=== PATIENT | male | born 1990 | race Caucasian/White ===

== ENCOUNTER 2023-08-02 10:01 | Outpatient (OUT) | payer OTHER, SELFPAY ==
--- NOTE | 2023-08-02 10:46 | XR_ITS ---
The [place] [id number] Patient Name: SHARAD GUTIERREZ MRN: [id number] date: 1990 Sex: M Assigned Patient Location: [facility] Current Patient Location: Accession/Order Number: [id number] Exam Date: 08/02/2023 10:40 Report Date: 08/03/2023 11:43 At the request of: GUZMAN BERNAL Procedure: XR lumbar spine 2-3V EXAMINATION: XR lumbar spine 2-3V HISTORY: Low Back Pain , left radiculopathy COMPARISON: No relevant comparison available. FINDINGS: BONES: Slight right convex curvature lumbar spine. No fracture or spondylolisthesis. Minimal degenerative facet arthropathy. DISC SPACES: Slight narrowing L4-5. PARASPINOUS: Negative. No paraspinous abnormality is seen. OTHER: Negative. XR/XR lumbar spine 2-3V IMPRESSION: 1. L4-5 mild degenerative disc disease. Electronically authenticated by: VANESA COYLE Date: 08/03/2023 11:43
== END 2023-08-02 10:02 | disposition home or self-care (01) ==
LOC: RAD 10:01
PROVIDERS: PCP Nurse Practitioner Family; Visit Provider Nurse Practitioner Family
DX: M54.42 Lumbago with sciatica, left side (principal); M51.36 Other intervertebral disc degeneration, lumbar region
CPT/HCPCS: 72100

== ENCOUNTER 2023-08-11 00:47 | Emergency (ER) | payer OTHER, SELFPAY ==
[2023-08-11 01:00] VITALS: BP 140/90; PULSE 91; TEMP 36.7; O2SAT 97; BMI 44.3
--- NOTE | 2023-08-11 01:21 | ECG_ITS ---
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
[2023-08-11] MEDS: KETOROLAC TROMETHAMINE 30 MG/ML VIAL IVP (01:42)
[2023-08-11] MEDS: DIAZEPAM 5 MG TABLET PO (01:42)
[2023-08-11] MEDS: 0.9 % SODIUM CHLORIDE 1,000 ML 1000 ML IV (01:42)
[2023-08-11 01:46] LABS: Basophils Absolute Auto 0.1 10^3/uL (0.0-0.1); Basophils Percent Auto 0.8 % (0.2-2.0); Eosinophils Absolute Auto 0.3 10^3/uL (0.0-0.7); Eosinophils Percent Auto 3.3 % (0.9-7.0); Hematocrit 42.2 % (42.0-54.0); Hemoglobin 13.6 g/dL (14.0-18.0); Immature Granulocytes Abs Auto 0.03 10^3/uL (0.00-0.03); Immature Granulocytes Pct Auto 0.4 % (0.0-0.5); Lymphocytes Absolute Auto 3.2 10^3/uL (1.2-3.8); Lymphocytes Percent Auto 41.3 % (20.5-60.0); Mean Corpuscular HGB Conc 32.2 g/dL (29.9-35.2); Mean Corpuscular Hemoglobin 28.2 pg (25.9-34.0); Mean Corpuscular Volume 87.4 fL (80.0-94.0); Monocytes Absolute Auto 0.7 10^3/uL (0.3-0.8); Monocytes Percent Auto 8.3 % (1.7-12.0); Neutrophils Absolute Auto 3.6 10^3/uL (1.4-6.5); Neutrophils Percent Auto 45.9 % (43.0-75.0); Platelet Count 224 10^3/uL (150-450); Red Blood Count 4.83 10^6/uL (4.70-6.10); Red Cell Distribution Width 12.9 % (11.0-15.0); White Blood Count 7.8 10^3/uL (4.0-11.0)
[2023-08-11 02:01] LABS: Alanine Aminotransferase 43 U/L (16-63); Albumin Globulin Ratio 1.2; Albumin Level 4.1 g/dL (3.4-5.0); Alkaline Phosphatase 43 U/L (46-116); Anion Gap 13.4; Aspartate Amino Transferase 14 U/L (15-37); BUN Creatinine Ratio 8.9; Bilirubin Total 0.3 mg/dL (0.2-1.0); Calcium 8.9 mg/dL (8.5-10.1); Carbon Dioxide 29.8 mmol/L (21.0-32.0); Chloride 100 mmol/L (98-107); Estimated GFR (African America >60 (>=60); Estimated GFR (Non-African Ame >60 (>=60); Globulin 3.4 g/dL; Glucose 129 mg/dL (74-106); Potassium 3.2 mmol/L (3.5-5.1); Sodium 140 mmol/L (136-145); Total Protein 7.5 g/dL (6.4-8.2)
[2023-08-11 02:04] LABS: Troponin I High Sensitivity <4.0 pg/mL (4.0-76.1)
[2023-08-11 02:05] LABS: D Dimer 1.13 mg/L FEU (<=0.59)
--- NOTE | 2023-08-11 02:08 | CT_ITS ---
[address] [address] Patient Name: SHARAD GUTIERREZ MRN: [id number] date: 1990 Sex: M Assigned Patient Location: ER Current Patient Location: ER Accession/Order Number: [id number] Exam Date: 08/11/2023 02:37 Report Date: 08/11/2023 04:27 At the request of: AMBER MARKER Procedure: CT angio chest EXAM: CT angio chest HISTORY: Left chest pain, elevate d dimer. COMPARISON: None. TECHNIQUE: Routine CTA chest with intravenous contrast. Dose reduction techniques were achieved by using automated exposure control and/or adjustment of mA and/or kV according to patient size and/or use of iterative reconstruction technique. FINDINGS: Cardiovascular: There is contrast within both the left and right heart and the subsegmental branches of the pulmonary arteries are not well opacified. There is no pulmonary mass within the pulmonary trunk or within the main, lobar or segmental pulmonary arteries. The heart size is normal. There is no pericardial fluid or thickening. The thoracic and proximal abdominal aorta are unremarkable. Lung: There is no consolidation, pleural effusion or pulmonary vascular congestion. There are no suspicious masses or nodules within the lungs. Lymphadenopathy: There are no pathologically enlarged lymph nodes. Other: The trachea and esophagus are unremarkable. There is mild thyromegaly. The thyroid gland was not entirely included within the field of imaging. There is no pneumothorax. Upper abdomen: The liver appears fatty infiltrated. Musculoskeletal: Unremarkable. CT/CT angio chest IMPRESSION: There is contrast within both the left and right heart and the subsegmental branches of the pulmonary arteries are not well opacified. There is no pulmonary mass within the pulmonary trunk or within the main, lobar or segmental pulmonary arteries. There is no consolidation or pleural effusion. There is mild thyromegaly. The thyroid gland was not entirely included within the field of imaging. The liver appears fatty infiltrated. Electronically authenticated by: RAKAN GAMBOA Date: 08/11/2023 04:27
--- NOTE | 2023-08-11 02:56 | ED_ITS ---
HPI HPI - General Adult General Chief complaint: Neuro Symptoms/Deficit Stated complaint: DIZZINESS NUMBNESS L ARM Time Seen by Provider: 08/11/23 01:08 Source: patient Mode of arrival: walk-in Limitations: no limitations History of Present Illness HPI narrative: This 32-year-old male who does not smoke cigarettes but vapes presents for evaluation of left arm numbness from his shoulder to his hand. The patient states he was walking down the stairs yesterday and fell and struck the left bicep muscle on the railing of his stairs. He did not fall at that time. Tonight he started having some numbness and tingling in the arm and felt dizzy while sitting and lying down. He did not pass out. He denies any mulu chest pain. The numbness and tingling in his left arm has decreased. He denies any shortness of breath. He states for the past 3 weeks he has been having left low back pain/sciatica pain. He has been taking muscle relaxants intermittently but he has not had any relief from this pain. He points to an area at his lower thoracic region states that he is having pain in this area with deep inspiration. He has not had any cough or hemoptysis. He denies any abdominal pain. He has no lower extremity pain or swelling. He has not had any headache, slurred speech, confusion or other neurologic symptoms besides the numbness in his left arm. Related Data Home Medications ?Medication ?Instructions ?Recorded ?Confirmed phentermine 37.5 mg tablet 37.5 mg PO DAILY 08/11/23 08/11/23 (Adipex-P) Allergies Allergy/AdvReac Type Severity Reaction Status Date / Time No Known Drug Allergies Allergy Verified 08/11/23 01:06 Opioid HPI Opioid Management Most Recent Opioid Data: No Data to Display Review of Systems ROS Status of ROS 10 or more systems reviewed and unremark able except as noted in history and below Exam Narrative Exam Narrative: Vital signs and Nursing Notes reviewed: Patient is afebrile with a normal pulse, blood pressure is mildly elevated at 140/90, he is not hypoxic with pulse ox of 97% on room air General: Awake, alert, oriented, no acute distress, lying comfortably on the stretcher HEENT: Normocephalic atraumatic, mucous membranes are moist and pink, eyes are clear, normal conjunctiva, vision is grossly intact Chest: Lungs are clear to auscultation with good air entry, there is no wheezing rhonchi or rales appreciated no accessory muscle use, patient is speaking in complete sentences-no chest wall tenderness to palpation CVS: Regular rate and rhythm S1-S2, no murmurs rubs or gallops, pulses are brisk and equal bilaterally ABD: Soft, nondistended, nontender, no rebound guarding or rigidity, bowel sounds are normal, no pulsatile masses appreciated Extremities: Moving all extremities, patient has full range of motion of both upper extremities. 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 NIH stroke scale is 0, despite the subjective complaint of numbness in the left upper extremity the patient has normal sensation and full range of motion Constitutional Vital Signs, click to edit/add: Last Vital Signs Temp 98.1 F 08/11/23 01:00 Pulse 82 08/11/23 04:00 Resp 18 08/11/23 04:00 BP 140/90 08/11/23 01:00 Pulse Ox 97 08/11/23 04:00 O2 Del Method Room Air 08/11/23 01:00 Course Vital Signs Vital signs: Vital Signs Temperature 98.1 F 08/11/23 01:00 Pulse Rate 91 H 08/11/23 01:00 Respiratory Rate 16 08/11/23 01:00 Blood Pressure 140/90 08/11/23 01:00 Pulse Oximetry 97 08/11/23 01:00 Oxygen Delivery Method Room Air 08/11/23 01:00 Temperature 98.1 F 08/11/23 01:00 Pulse Rate 82 08/11/23 04:00 Respiratory Rate 18 08/11/23 04:00 Blood Pressure 140/90 08/11/23 01:00 Pulse Oximetry 97 08/11/23 04:00 Oxygen Delivery Method Room Air 08/11/23 01:00 Medical Decision Making [facility] Narrative Medical decision making narrative: This 32-year old male presents for evaluation of left arm numbness and 2 episodes of dizziness prior to coming to the emergency department. He denies any mulu chest pain or shortness of breath. He states he fell yesterday and struck the left medial bicep muscle on the railing when he was falling. He was not otherwise injured. He does not have any cardiac risk factors beside the fact that he vapes and is moderately overweight. His neuroexam is normal. His strength and sensation in the upper and lower extremities are normal. Sensation is normal. He has full range of motion of his extremities. He states he was also being treated for sciatica and has pain in the left lumbar region and when he takes a deep breath he has a sharp pain in his left mid to lower back area. In light of that a cardiac workup and D-dimer was ordered. He has a normal white count and hemoglobin. Electrolytes are normal. He has a normal troponin. D-dimer is elevated greater than 1. CTA of the chest was ordered and the bolus timing was not perfect but there is no sign of any abnormalities in the pulmonary arteries including the subsegmental arteries. There is no mass or other abnormal findings. It did show fatty liver. The results of the CT scan was discussed with the patient and his . On reevaluation he is feeling completely better. All of his symptoms including the muscle spasm and sciatica he was experiencing are feeling better. He will be discharged home with prescription for short course of Valium to use for muscle spasm and ibuprofen to use for pain. Medical Records Medical records narrative: [place] [address] CT Scan Report Signed Patient: SHARAD DARNELL MR#: [id number] : 1990 Acct:[id number] Age/Sex: 32 / M ADM Date: 08/11/23 Loc: ER Attending Dr: Ordering Physician: Roz Coy Date of Service: 08/11/23 Procedure(s): CT angio chest Accession Number(s): [id number] cc: GUZMAN BERNAL ~ The [place] [id number] Patient Name: SHARAD GUTIERREZ MRN: [facility]:[id number] date: 1990 Sex: M Assigned Patient Location: ER Current Patient Location: ER Accession/Order Number: [id number] Exam Date: 08/11/2023 02:37 Report Date: 08/11/2023 04:27 At the request of: ROZ COY Procedure: CT angio chest EXAM: CT angio chest HISTORY: Left chest pain, elevate d dimer. COMPARISON: None. TECHNIQUE: Routine CTA chest with intravenous contrast. Dose reduction techniques were achieved by using automated exposure control and/or adjustment of mA and/or kV according to patient size and/or use of iterative reconstruction technique. FINDINGS: Cardiovascular: There is contrast within both the left and right heart and the subsegmental branches of the pulmonary arteries are not well opacified. There is no pulmonary mass within the pulmonary trunk or within the main, lobar or segmental pulmonary arteries. The heart size is normal. There is no pericardial fluid or thickening. The thoracic and proximal abdominal aorta are unremarkable. Lung: There is no consolidation, pleural effusion or pulmonary vascular congestion. There are no suspicious masses or nodules within the lungs. Lymphadenopathy: There are no pathologically enlarged lymph nodes. Other: The trachea and esophagus are unremarkable. There is mild thyromegaly. The thyroid gland was not entirely included within the field of imaging. There is no pneumothorax. Upper abdomen: The liver appears fatty infiltrated. Musculoskeletal: Unremarkable. CT/CT angio chest IMPRESSION: There is contrast within both the left and right heart and the subsegmental branches of the pulmonary arteries are not well opacified. There is no pulmonary mass within the pulmonary trunk or within the main, lobar or segmental pulmonary arteries. There is no consolidation or pleural effusion. There is mild thyromegaly. The thyroid gland was not entirely included within the field of imaging. The liver appears fatty infiltrated. Electronically authenticated by: RAKAN GAMBOA Date: 08/11/2023 04:2 Lab Data Lab results reviewed: Yes I reviewed the patient's lab results Labs: Lab Results 08/11/23 Range/Units 01:35 WBC 7.8 (4.0-11.0) 10^3/uL RBC 4.83 (4.70-6.10) 10^6/uL Hgb 13.6 L (14.0-18.0) g/dL Hct 42.2 (42.0-54.0) % MCV 87.4 (80.0-94.0) fL MCH 28.2 (25.9-34.0) pg MCHC 32.2 (29.9-35.2) g/dL RDW 12.9 (11.0-15.0) % Plt Count 224 (150-450) 10^3/uL MPV 11.0 (9.5-13.5) fL Neut % (Auto) 45.9 (43.0-75.0) % Lymph % (Auto) 41.3 (20.5-60.0) % [place] % (Auto) 8.3 (1.7-12.0) % Eos % (Auto) 3.3 (0.9-7.0) % Baso % (Auto) 0.8 (0.2-2.0) % Neut # (Auto) 3.6 (1.4-6.5) 10^3/uL Lymph # (Auto) 3.2 (1.2-3.8) 10^3/uL [place] # (Auto) 0.7 (0.3-0.8) 10^3/uL Eos # (Auto) 0.3 (0.0-0.7) 10^3/uL Baso # (Auto) 0.1 (0.0-0.1) 10^3/uL Abs Immat Gran (auto) 0.03 (0.00-0.03) 10^3/uL Imm/Tot Granulo (auto) 0.4 (0.0-0.5) % D-Dimer 1.13 H* (<=0.59) mg/L FEU Sodium 140 (136-145) mmol/L Potassium 3.2 L (3.5-5.1) mmol/L Chloride 100 (98-107) mmol/L Carbon Dioxide 29.8 (21.0-32.0) mmol/L Anion Gap 13.4 BUN 9.0 (7.0-18.0) mg/dL Creatinine 1.01 (0.70-1.30) mg/dL Est GFR ( Amer) >60 (>=60) Est GFR (Non-Af Amer) >60 (>=60) BUN/Creatinine Ratio 8.9 Glucose 129 H (74-106) mg/dL Calcium 8.9 (8.5-10.1) mg/dL Total Bilirubin 0.3 (0.2-1.0) mg/dL AST 14 L (15-37) U/L ALT 43 (16-63) U/L Alkaline Phosphatase 43 L (46-116) U/L Troponin I High Sens <4.0 L (4.0-76.1) pg/mL Total Protein 7.5 (6.4-8.2) g/dL Albumin 4.1 (3.4-5.0) g/dL Globulin 3.4 g/dL Albumin/Globulin Ratio 1.2 ECG Data Attestation: I personally reviewed and interpreted this ECG as follows: (Sinus rhythm 85 bpm, normal axis, normal intervals, no acute ST segment elevation or T wave inversion) Discharge Plan Discharge Stand Alone Forms: [place] Instructions Chief Complaint: Neuro Symptoms/Deficit Clinical Impression: Musculoskeletal back pain, Upper extremity neuropathy Patient Disposition: Home, Self-Care Time of Disposition Decision: 04:44 Condition: Good Prescriptions / Home Meds: No Action phentermine [Adipex-P] 37.5 mg tablet 37.5 mg PO DAILY Rx Instructions: must administer 30 minutes before or 1-2 hours after breakfast Print Language: Beninese Instructions: Sciatica (ED), Acute Low Back Pain (ED), Paresthesia (ED) Referrals: GUZMAN BERNAL [Primary Care Provider] - 1 week
[2023-08-11 04:00] VITALS: PULSE 82; O2SAT 97
[2023-08-11 04:53] VITALS: BP 132/82; PULSE 76; O2SAT 99
== END 2023-08-11 04:53 | disposition home or self-care (01) ==
PROVIDERS: Emergency Provider Emergency Medicine; PCP Nurse Practitioner Family
DX: M54.9 Dorsalgia, unspecified (principal); G56.90 Unspecified mononeuropathy of unspecified upper limb; F17.290 Nicotine dependence, other tobacco product, uncomplicated
CPT/HCPCS: 36415; 71275; 80053; 84484; 85025; 85378; 93005; 96361; 96374; 99285; J1885; Q9967

== ENCOUNTER 2024-12-05 15:52 | Outpatient (OUT) | payer OTHER, SELFPAY ==
--- NOTE | 2024-12-05 | XR_ITS ---
The [address] [address] Patient Name: SHARAD GUTIERREZ MRN: [id number] date: 1990 Sex: M Assigned Patient Location: RAD Current Patient Location: [facility] Accession/Order Number: [id number] Exam Date: 12/05/2024 16:10 Report Date: 12/05/2024 22:22 At the request of: RUBY CUNNINGHAM CORRESPONDENCE SECTION SUPERVISOR Procedure: XR hip LT 2V w/ pelvis Single view pelvis and 2 views left hip INDICATION: Pain COMPARISON: None FINDINGS: Minimal spurring sacroiliac joint. No fracture or dislocation identified. Joint spaces preserved. XR/XR hip LT 2V w/ pelvis IMPRESSION: Negative acute osseous abnormalities. Impression dictated by: Adolfo Gerardo M.D. 12/05/2024 10:22 PM Dictation Location: [place] [address] Electronically authenticated by: [id number] Y Date: 12/05/2024 22:22
--- OUTSIDE RECORDS SUMMARY | 2024-12-05 15:00 | XMS_ITS | Encounter Summary ---
Author Organization [facility] [employer] s tem Address [id number] [address] [place] [address] Care Team Providers Care Court Of Appeals Judge Name Role Phone Olesya, Maggy Kenyon TASSEL SNIPPER-EXTRUSION PRESS OPERATOR Primary Care Provider + Reason for Visit * ReasonCommentsdiscuss referral Encounter Details DateTypeDepartmentCare Team (Latest Contact Info)Rhezjjzyhmb82/22/2025 3:00 PM EDTOffice Visit [facility] [address] [place] [address] Lewis Hull, TASSEL SNIPPER-EXTRUSION PRESS OPERATOR [address], [address] [address] Left hip pain (Primary Dx); Lumbar radiculopathy, chronic; Class 3 severe obesity due to excess calories without serious comorbidity with body mass index (BMI) of 45.0 to 49.9 in adult ([facility]) Social History Tobacco UseTypesPacks/DayYears UsedDateSmoking Tobacco: TfhuhvBzmkwnzjtc399 07/05/2012 - 07/05/2022Smokeless Tobacco: FormerChewQuit: 07/05/2022lcohol Use Standard Drinks/WeekCommentsNot Currently0 (1 standard drink = 0.6 oz pure alcohol)[facility] UtilitiesAnswerDate RecordedIn the past 12 months has the electric, gas, oil, or water company threatened to shut off services in your home?No 10/03/2023Social Connection and Isolation PanelAnswerDate RecordedIn a typical week, how many times do you talk on the phone with family, friends, or neighbors?More than three times a week10/03/2023How often do you get together with friends or relatives?Once a week10/03/2023How often do you attend sikh or zoroastrian services?Never10/03/2023o you belong to any clubs or organizations such as sikh groups, unions, fraternal or athletic groups, or school groups?No 10/03/2023How often do you attend meetings of the clubs or organizations you belong to?Never10/03/2023re you , , , , never , or living with a partner?Iwhdxyi2810/03/2023UDIT-CAnswerDate RecordedQ1: How often do you have a drink containing alcohol?Monthly or less10/03/2023Q2: How many drinks containing alcohol do you have on a typical day when you are drinking?1 or Q3: How often do you have six or more drinks on one occasion?Never10/03/2023Overall Financial Resource Strain (CARDIA)AnswerDate RecordedHow hard is it for you to pay for the very basics like food, housing, medical care, and heating?Not very hard12/02/2023HQ-2AnswerDate RecordedTotal Swjix171Finintermountain healthcare [place] of Occupational Health - Occupational Stress QuestionnaireAnswerDate RecordedDo you feel stress - tense, restless, nervous, or anxious, or unable to sleep at night because yourmind is troubled all the time - these days?To some glfsot9610/03/2023RAPARE - TransportationAnswerDate RecordedIn the past 12 months, has lack of transportation kept you from medical appointments or from getting medications?Patient /18/2024In the past 12 months, has lack of transportation kept you from meetings, work, or from getting things needed for daily living?Patient dqalglkq20/18/2024Housing InstabilityAnswerDate RecordedAre you worried or concerned that in the next two months you may not have stable housing that you own, rent or stay in as a part of a household?Patient Nuznlzoe89/18/2024hildcareAnswerDate RecordedDo problems getting child care provider make it difficult for you to work or study?No10/03/2023 EmploymentAnswerDate RecordedDo you need help finding a local career center and/or a training program?No10/03/2023Hunger ScreeningAnswerDate RecordedWithin the past 12 months we worried whether our food would run out before we got money to buy more.Never True12/05/2024Within the past 12 months the food we bought just didn't last and we didn't have money to get more.Never True12/05/2024 Purpose - LifeAnswerDate RecordedI have a purpose and direction in my life. Strongly Agree10/03/2023Sex and Gender InformationValueDate RecordedSex Assigned at BirthNot on fileLegal QxbOlwh7609/17/2014 7:25 PM EDTGender IdentityNot on file Sexual OrientationNot on filedocumented as of this encounter Last Filed Vital Signs Vital SignReadingTime TakenCommentsBlood Baeoozdy130/8812/05/2024 2:48 PM EDT Jemre388212/05/2024 2:48 PM NHXGkvleqaccjx43.4 ??C (97.6 ??F)12/05/2024 2:48 PM EDTRespiratory Gyeb9586 2:48 PM EDTOxygen Iglsggmvyj00%12/05/2024 2:48 PM EDTInhaled Oxygen Concentration--Ectkrb477.1 kg (333 lb 3.2 oz)12/05/2024 2:48 PM YMXKglvwx785.8 cm (5' 10 )12/05/2024 2:48 PM EDTBody Mass Index47.81 12/05/2024 2:48 PM EDTdocumented in this encounter Plan of Treatment NameTypePriorityAssociated DiagnosesOrder ScheduleX-ray hip left 2-3 views with or without pelvisImagingRoutine Left hip pain Expected: 12/05/2024, Expires: 12/05/2025documented as of this encounter Visit Diagnoses Diagnosis Left hip pain- Primary Pain in joint, pelvic region and thigh Lumbar radiculopathy, chronic Class 3 severe obesity due to excess calories without serious comorbidity with body mass index (BMI) of 45.0 to 49.9 in adult ([facility]) documented in this encounter Additional Health Concerns AssessmentNoted TimePHQ-9 Depression Total Score: 2:47 PM EDT documented as of this encounter Care Teams Team MemberRelationshipSpecialtyStart DateEnd Date Maggy Dacosta APRN-EXTRUSION PRESS OPERATOR [address] [place] [address] PCP - GeneralInternal Ajgirgnl96/16/23documented as of this encounter
--- OUTSIDE RECORDS SUMMARY | 2024-12-05 15:59 | XMS_ITS | Clinical Summary ---
Author Organization [facility] Address [address] [place] [address] Phone Care Team Providers Care Mineralogy Teacher Name Role Phone Unavailable Primary Care Provider Unavailabl e Social History Tobacco UseTypesPacks/DayYears UsedDateSmoking Tobacco: Never AssessedSex and Gender InformationValueDate RecordedSex Assigned at BirthNot on fileLegal Sex Male01/08/2022 11:38 AM ESTGender IdentityNot on fileSexual OrientationNot on file Last Filed Vital Signs Vital SignReadingTime TakenCommentsBlood Mgyzyguh531/80003/02/2017 7:26 AM EST Dgnua3451 7:26 AM VMQIrsvjjvwgmg83.5 ??C (97.7 ??F)03/02/2017 7:26 AM ESTRespiratory Gqpi2939 7:26 AM ESTOxygen Saturation--Inhaled Oxygen Concentration--Uluqwu937 kg (278 lb 7.1 oz)03/02/2017 7:17 AM KSPItuahf285.8 cm (5' 10 )03/02/2017 7:17 AM ESTBody Mass Index39.95003/02/2017 7:17 AM EST Plan of Treatment Not on file
--- OUTSIDE RECORDS SUMMARY | 2024-12-05 15:59 | XMS_ITS | Clinical Summary ---
Author Organization [employer] tem Address [id number] [address] [place] [address] Care Team Providers Care Instrument Technician Name Role Phone Olesya Maggy Kenyon APRN-BISQUE PLACER Primary Care Provider + Allergies No known active allergies Medications MedicationSigDispense QuantityRefillsLast FilledStart DateEnd DateStatus fluticasone propionate (FLONASE) 50 mcg/actuation nasal spray Administer 1 spray into each nostril in the morning. 9.9 mL 4Active Additional Information Patient not taking.Reported on 12/05/2024 tiZANidine (ZANAFLEX) 4 mg tablet Indications:Left hip pain,Lumbar radiculopathy, chronicTake 1 tablet (4 mg total) by mouth every 8 (eight) hours as needed for muscle spasms. 90 tablet 5Active naproxen (NAPROSYN) 500 mg tablet Indications:Left hip pain,Lumbar radiculopathy, chronicTake 1 tablet (500 mg total) by mouth 2 (two) times a day as needed for pain. 60 tablet 5Active predniSONE (DELTASONE) 50 mg tablet Indications:Left hip pain,Lumbar radiculopathy, chronicTake 1 tablet (50 mg total) by mouth in the morning for 3 days. 3 tablet /5Active celecoxib (CeleBREX) 100 mg capsule Take 1 capsule (100 mg total) by mouth in the morning and 1 capsule (100 mg total) before bedtime. 60 capsule Discontinued(Alternate therapy) gabapentin (NEURONTIN) 100 mg capsule Indications:Lumbar radiculopathy, chronicTake 1 capsule (100 mg total) by mouth 3 (three) times a day. 90 capsule Discontinued(Therapy completed) baclofen (LIORESAL) 10 mg tablet Take 2 tablets (20 mg total) by mouth 3 (three) times a day as needed for muscle spasms.Discontinued(Alternate therapy) albuterol (PROVENTIL HFA;VENTOLIN HFA) 90 mcg/actuation inhaler Indications:Mild intermittent reactive airway disease without complicationInhale 2 puffs every 6 (six) hours as needed for shortness of breath or wheezing. 18 g Discontinued(Therapy completed) ketoconazole (NIZORAL) 2 % shampoo Apply 1 Application topically 2 (two) times a week. Apply to damp skin, lather, leave on 5 minutes,and rinse 120 mL Discontinued(Therapy completed) Active Problems ProblemNoted DateDiagnosed DateClass 3 severe obesity due to excess calories without serious comorbidity with body mass index (BMI) of 45.0 to 49.9 in adult 03/31/2024Seborrheic ftjqedhgbn54/15/6020Lktpaqc04/01/2024Gastroesophageal reflux disease without xenzxolmfiq51/01/2024eactive airway disease without zlpvbxsfpduf87/01/2024ecurrent otitis media06/01/2021Eustachian tube ybysrrqfysv58/18/2022 Resolved Problems ProblemNoted DateDiagnosed DateResolved DateCurrent mild episode of major depressive disorder without prior sbfiucl11Wellness hryeljaxtyu73 Encounters DateTypeDepartmentCare TftjLmraetceqlf56/22/2025 3:00 PM EDTOffice Visit [facility] [address] [place] [id number] Lewis Hull, DRUG AND ALCOHOL COUNSELLOR-BISQUE PLACER Left hip pain (Primary Dx); Lumbar radiculopathy, chronic; Class 3 severe obesity due to excess calories without serious comorbidity with body mass index (BMI) of 45.0 to 49.9 in adult ([facility])12/05/2024Travelfrom Last 3 Months Immunizations ImmunizationAdministration DatesNext DueDTaP, Tujgslgyyqm88/02/1998,05/28/1993, 03/13/1992,02/01/1992,1991Hep B, Adolescent or [place]91/14/1994, 12/26/1992,06/11/1992HiB12/26/1992,12/26/1992,03/13/1992,03/13/1992,02/01/1992, 02/01/1992,1991,1991Influenza, Im Trivalent Bggnijolpeiy91/17/2001 MMR02/25/2000,12/26/1992Meningococcal SBC5S1503/13/2009Polio, Unspecified 08/15/1997,05/28/1993,02/01/1992,1991Tdap104/06/2017,08/23/2013,08/15/1997, 05/28/1993,03/13/1992,02/01/1992,12/05/1991Ychaozp84/28/9982Ktitoljed60/02/1998 Family History Medical HistoryRelationNameCommentsSarcoidosisFatherDiabetesMotherHyperlipidemia MotherHypertensionMotherKidney diseaseMotherRelationNameStatusCommentsFather AliveMotherAlive Social History Tobacco UseTypesPacks/DayYears UsedDateSmoking Tobacco: FnfpukBdwnpphhyz247 07/05/2012 - 07/05/2022Smokeless Tobacco: FormerChewQuit: 07/05/2022 Tobacco Cessation:Counseling Given: Not Answered Alcohol UseStandard Drinks/WeekCommentsNot Currently0 (1 standard drink = 0.6 oz pure alcohol)[facility] UtilitiesAnswerDate RecordedIn the past 12 months has the [employer], gas, oil, or water [employer] threatened to shut off services in your home?No10/03/2023Social Connection and Isolation PanelAnswerDate RecordedIn a typical week, how many times do you talk on the phone with family, friends, or neighbors?More than three times a week10/03/2023How often do you get together with friends or relatives?Once a week10/03/2023How often do you attend anglican or temple services?Never10/03/2023o you belong to any clubs or organizations such as anglican groups, unions, fraternal or athletic groups, or school groups?No 10/03/2023How often do you attend meetings of the clubs or organizations you belong to?Never10/03/2023re you , , , , never , or living with a partner?Stzkoma0710/03/2023UDIT-CAnswerDate RecordedQ1: How often do you have a [...] medical care, and heating?Not very hard12/02/2023HQ-2AnswerDate RecordedTotal Etmah846[facility] [place] of Occupational Health - Occupational Stress QuestionnaireAnswerDate RecordedDo you feel stress - tense, restless, nervous, or anxious, or unable to sleep at night because yourmind is troubled all the time - these days?To some dtulib8110/03/2023RAPARE - TransportationAnswerDate RecordedIn the past 12 months, has lack of transportation kept you from medical appointments or from getting medications?Patient /18/2024In the past 12 months, has lack of transportation kept you from meetings, work, or from getting things needed for daily living?Patient /18/2024Housing InstabilityAnswerDate RecordedAre you worried or concerned that in the next two months you may not have stable housing that you own, rent or stay in as a part of a household?Patient Quamvwvc81/18/2024hildcareAnswerDate 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 [...] InformationValueDate RecordedSex Assigned at BirthNot on fileLegal MfkLzde5709/17/2014 7:25 PM EDTGender IdentityNot on file Sexual OrientationNot on file Last Filed Vital Signs Vital SignReadingTime TakenCommentsBlood Pffxwogc659/8812/05/2024 2:48 PM EDT Jcajm447312/05/2024 2:48 PM VBQWixgvwpsqod88.4 ??C (97.6 ??F)12/05/2024 2:48 PM EDTRespiratory Repu6729 2:48 PM EDTOxygen Trevsllogg83%12/05/2024 2:48 PM EDTInhaled Oxygen Concentration--Dlfpdv281.1 kg (333 lb 3.2 oz)12/05/2024 2:48 PM NKXVysizw659.8 cm (5' 10 )12/05/2024 2:48 PM EDTBody Mass Index47.81 12/05/2024 2:48 PM EDT Plan of Treatment Health MaintenanceDue DateLast DoneCommentsAdult BMI Follow Up Plan09/04/2009 COVID-19 Vaccine ( season)/, 05/15/2020Influenza Ztszmpm50/Adult BMI Ihziqhfsb14Depression Npasfqgis84Tobacco Qpfztusow55DTaP,Tdap and Td Vaccines (8 - Td or Tdap), 08/23/2013, 08/15/1997, Additional history exists Medical Devices Not on file Insurance * Guarantor: Spenser Carrccount TypeRelation to PatientDate of PhoneBilling AddressPersonal/LofndyNjeh72/22/[address] [address] Care Teams Team MemberRelationshipSpecialtyStart DateEnd Date Maggy Dacosta, DRUG AND ALCOHOL COUNSELLOR-BISQUE PLACER [address] [place] [address] PCP - GeneralInternal Ydzgrtcb13/16/23
--- OUTSIDE RECORDS SUMMARY | 2024-12-05 15:59 | XMS_ITS | Encounter Summary ---
Author Organization [employer] Address [facility] [id number] [address] [place] [address] Care Team Providers Care Brake Repair Supervisor Name Role Phone Maggy Dacosta Primary Care Provider + Encounter Details DateTypeDepartmentCare Team (Latest Contact Info)Nlfqtalfqyx75/22/2025Travel Social History Tobacco UseTypesPacks/DayYears UsedDateSmoking Tobacco: EuuydfGgqzkvsfcr365 07/05/2012 - 07/05/2022Smokeless Tobacco: FormerChewQuit: 07/05/2022lcohol Use Standard Drinks/WeekCommentsNot Currently0 (1 standard drink = 0.6 oz pure alcohol)[facility] UtilitiesAnswerDate RecordedIn the past 12 months has the electric, gas, oil, or water [employer] threatened to shut off services in your home?No 10/03/2023Social Connection and Isolation PanelAnswerDate RecordedIn a typical week, how many times do you talk on the phone with family, friends, or neighbors?More than three times a week10/03/2023How often do you get together with friends or relatives?Once a week10/03/2023How often do you attend congregation or taoism services?Never4Do you belong to any clubs or organizations such as congregation groups, unions, fraternal or athletic groups, or school groups?No 10/03/2023How often do you attend meetings of the clubs or organizations you belong to?Never10/03/2023re you , , , , never , or living with a partner?Txtpsvp7410/03/2023UDIT-CAnswerDate RecordedQ1: How often do you have a [...] medical care, and heating?Not very hard12/02/2023HQ-2AnswerDate RecordedTotal Xnsec481Finut[facility] hospital [place] of Occupational Health - Occupational Stress QuestionnaireAnswerDate RecordedDo you feel stress - tense, restless, nervous, or anxious, or unable to sleep at night because yourmind is troubled all the time - these days?To some blvvpp6810/03/2023RAPARE - TransportationAnswerDate RecordedIn the past 12 months, has lack of transportation kept you from medical appointments or from getting medications?Patient bxvhkfmi55/18/2024In the past 12 months, has lack of transportation kept you from meetings, work, or from getting things needed for daily living?Patient pzedwbib82/18/2024Housing InstabilityAnswerDate RecordedAre you worried or concerned that in the next two months you may not have stable housing that you own, rent or stay in as a part of a household?Patient Eibeltsa95/18/2024hildcareAnswerDate 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 [...] InformationValueDate RecordedSex Assigned at BirthNot on fileLegal NamSxrr0509/17/2014 7:25 PM EDTGender IdentityNot on file Sexual OrientationNot on filedocumented as of this encounter Plan of Treatment Not on file documented as of this encounter Visit Diagnoses Not on filedocumented in this encounter Additional Health Concerns AssessmentNoted TimePHQ-9 Depression Total Score: 2:47 PM EDT documented as of this encounter Care Teams Team MemberRelationshipSpecialtyStart DateEnd Date Maggy Dacosta, [facility] [address] [place] [address] PCP - GeneralInternal Ymkjltju36/16/23documented as of this encounter
--- OUTSIDE RECORDS SUMMARY | 2024-12-05 15:59 | XMS_ITS | CCD ---
Author Organization [facility] Care Team Providers Care Network Engineering Advisor Name Role Phone Fidelina Bojorquez Unavailable Unavail able FREE, TEXT ENTRY Unavailable Unavailable Fidelina Bojorquez Unavailable Unavail able Angel Walsh Unavailable Laya Sylvester Unavailable Sangeeta Jamison Unavailable LIAM GASTON Admitting Unavailable MARILIN, LIAM Consulting Unavailable LIAM GASTON Attending Unavailable CAESAR, DR ADEN Primary Care Unavailable CAESAR, DR ADEN Attending Unavailable CAESAR, DR ADEN Admitting Unavailable CAESAR, DR ADEN Primary Care Unavailable CAESAR, DR ADEN Consulting Unavailable Rodriguez Maynard Primary Care Physician MD Domenic Trammell Attending Provider Domenic Trammell Attending Unavailable Domenic Trammell Admitting Unavailable Domenic TRAMMELL Attending Unavailable Rodriguez Maynard Referring Unavailable Domenic TRAMMELL Attending Unavailable Domenic TRAMMELL Attending Unavailable DOLORES, GUZMAN L Referring Unavailable DOLORES, GUZMAN L Primary Care Unavailable DOLORES, GUZMAN L Attending Unavailable DOLORES, GUZMAN L Referring Unavailable DOLORES, GUZMAN L Primary Care Unavailable DOLORES, GUZMAN L Attending Unavailable DOLORES, GUZMAN L Referring Unavailable DOLORES, GUZMAN L Primary Care Unavailable FURLONGALEXEY Attending Unavailable DOLORES, GUZMAN L Referring Unavailable DOLORES, GUZMAN L Primary Care Unavailable FURLONGALEXEY Attending Unavailable DOLORES, GUZMAN L Referring Unavailable DOLORES, GUZMAN L Primary Care Unavailable DOLORES, GUZMAN L Attending Unavailable DOLORES, GUZMAN L Referring Unavailable DOLORES, GUZMAN L Primary Care Unavailable Dolores APPEALS NURSE-LINER ASSEMBLER, Guzman L Primary Care Provider DOLORES, GUZMAN L Referring Unavailable DOLORES, GUZMAN L Primary Care Unavailable DOLORES, GUZMAN L Referring Unavailable GUZMAN BERNAL Primary Care Unavailable EMILIE VELÁZQUEZ Attending Unavailable ALEXEY SHAH Referring Unavailable GUZMAN BERNAL Primary Care Unavailable Allergies Allergy ClassificationReported Allergen(s)Allergy TypeDate of OnsetReaction(s) Facility (1 source)No Known Medication Allergies; Translations: [No Known Medication Allergies]Propensity to adverse reactions (disorder)[facility] Repository Medications Current Medications MedicationDrug Class(es)DatesSig (Normalized)Sig (Original)[id number] 200 actuat albuterol 0.09 mg/actuat metered dose inhaler (20 sources)beta2-Adrenergic AgonistStart: 90-40-1469owsk 2 puff(s) by inhalation every six hours as needed for wheezingalbuterol (PROVENTIL HFA;VENTOLIN HFA) 90 mcg/actuation inhaler Indications: Mild intermittent react tima airway disease without complication Inhale 2 puffs every 6 (six) hours as needed for shortness of breath or wheezing. 18 g 1 11/10/2023 ActiveStart: 06-15-2023 End: 20-26-5354huya 2 puff(s) by inhalation every six hours as needed for wheezingalbuterol (PROVENTIL HFA;VENTOLIN HFA) 90 mcg/actuation inhaler Indications: Mild intermittent reactive airway disease without complication Inhale 2 puffs every 6 (six) hours as needed for shortness of breath or wheezing. 18 g 1 06/15/2023 11/08/2023 Discontinued (Reorder)Start: 09-03-2018 take 2 puff(s) by inhalation every four hours as neededAlbuterol Sulfate HFA 108 (90 Base) MCG/ACT 2 puffs Inhalation every 4 hours as needed for 7 days Aug, Not-TakingStart: 58-46-8490exvr 2 puff(s) by inhalation every four hours as neededAlbuterol Sulfate HFA 108 (90 Base) MCG/ACT 2 puffs Inhalation every 4 hours as needed for 7 days Aug, Not-Takingamoxicillin 875 mg oral tablet (1 source)Penicillin-class AntibacterialStart: 85-65-5170mvgj 1 tablet by mouth every twelve hoursAmoxicillin 875 MG 1 tablet Orally every 12 hrs for 7 days Feb, Activeazithromycin 250 mg oral tablet (4 sources)Macrolide AntimicrobialStart: 14-65-5197Lakvndueg 250 MG 2 tablet on the first day, then 1 tablet daily for 4 days Orally Once a day for 5 day(s) Apr, Activebaclofen 10 mg oral tablet (18 sources)gamma-Aminobutyric Acid-ergic AgonistStart: 62-23-1952xkif 2 tablets by mouth three times daily as needed for muscle spasmsbaclofen (LIORESAL) 10 mg tablet Take 2 tablets (20 mg total) by mouth 3 (three) times a day as needed for muscle spasms. 10/03/2023 ActiveStart: 09-28-2023 End: 27-79-8417sokz 1 tablet by mouth three times dailybaclofen (LIORESAL) 10 mg tablet Take 1 tablet (10 mg total) by mouth 3 (three) times a day. 90 tablet 1 09/28/2023 10/03/2023 DiscontinuedStart: 07-15-2023 End: 29-61-7447nboy 1 tablet by mouth three times dailybaclofen (LIORESAL) 10 mg tablet Take 1 tablet (10 mg total) by mouth 3 (three) times a day. 90 tablet 1 07/15/2023 09/25/2023 Discontinued (Reorder)busPIRone hydrochloride 10 mg oral tablet (1 source)Start: 49-32-9676uxmSBYhoa 10 mg Tab Refills(s) 0 Start Date: 11/27/21 Status: Orderedcefdinir 300 mg oral capsule (1 source)Cephalosporin AntibacterialStart: 93-71-9933xyde 1 capsule by mouth every twelve hoursCefdinir 300 MG 1 capsule Orally every 12 hrs for 10 day(s) Feb, Activecelecoxib 100 mg oral capsule (16 sources)Nonsteroidal Anti-inflammatory DrugStart: 65-21-1870qsgr 1 capsule by mouth in the morning, then take 1 capsule by mouth at bedtimecelecoxib (CeleBREX) 100 mg capsule Take 1 capsule (100 mg total) by mouth in the morning and 1 capsule (100 mg total) before bedtime. 60 capsule 1 07/15/2023 Active cephalexin 500 mg oral capsule (1 source)Cephalosporin AntibacterialStart: 11-27-2021 End: 98-02-6589ublz 1 capsule by mouth twice daily at mealtimeKeflex 500 mg Cap 500 mg = 1 cap(s), Oral, BID, start with first meal after procedure, X 5 day(s), # 10 cap(s), Refills(s) 0, Pharmacy: [facility], 178, cm, 11/27/21 9:28:00 EDT, Height/Length Dosing, 140.7, kg, 11/27/21 9:28:00 EDT, Weight Dosing Start Date: 11/27/21 Stop Date: 12/02/21 Status: Ordered fluticasone propionate 0.05 mg/actuat metered dose nasal spray (20 sources)CorticosteroidStart: 70-79-5078axrq 1 spray(s) nasal route in the morningfluticasone propionate (FLONASE) 50 mcg/actuation nasal spray Administer 1 spray into each nostril in the morning. 9.9 mL 2 11/10/2023 ActiveStart: 09-18-2023 End: 10-44-7679rhtz 1 spray(s) nasal route in the morningfluticasone propionate (FLONASE) 50 mcg/actuation nasal spray Administer 1 spray into each nostril in the morning. 9.9 mL 2 09/18/2023 11/08/2023 Discontinued (Reorder)Start: 12-30-2022 End: 64-90-5278wxff 1 spray(s) nasal route in the morningfluticasone propionate (FLONASE) 50 mcg/actuation nasal spray Administer 1 spray into each nostril in the morning. 9.9 mL 2 08/12/2023 09/15/2023 Discontinued (Reorder)Start: 32-36-8878lwfr 1 spray(s) nasal route twice dailyFluticasone Propionate 50 MCG/ACT 1 spray in each nostril Nasally Twice a day for 14 days Feb, Activegabapentin 100 mg oral capsule (9 sources)Anti-epileptic AgentStart: 44-80-6570icrl 1 capsule by mouth three times dailygabapentin (NEURONTIN) 100 mg capsule Indications: Lumbar radiculopathy, chronic Take 1 capsule (100 mg total) by mouth 3 (three) times a day. 90 capsule 1 10/03/2023 Activeketoconazole 20 mg/ml medicated shampoo (5 sources)Azole AntifungalStart: 01-09-7021vcakdhoqrjac (NIZORAL) 2 % shampoo Apply 1 Application topically 2 (two) times a week. Apply to damp skin, lather, leave on 5 minutes, and rinse 120 mL 1 03/29/2024 ActivepredniSONE 20 mg oral tablet (5 sources)Start: 06-15-2023 End: 73-03-0087seey 1 tablet by mouth in the morning, then take 1 tablet by mouth at bedtimepredniSONE (DELTASONE) 20 mg tablet Take 1 tablet (20 mg total) by mouth in the morning and 1 tablet (20 mg total) before bedtime. Do all this for 5 days. 10 tablet 06/15/2023 06/20/2023 ActiveStart: 57-51-9519pmeu 1 tablet by mouth every twelve hourspredniSONE 20 MG 1 tablet Orally bid for 5 day(s) Apr, ActiveStart: 97-94-0248jaku 2 tablets by mouth every twenty-four hours predniSONE 20 MG 2 tablets Orally Once a day for 5 days Aug, Not-Taking Completed/Discontinued Medications MedicationDrug Class(es)DatesSig (Normalized)Sig (Original)cyclobenzaprine hydrochloride 10 mg oral tablet (2 sources)Muscle RelaxantStart: 06-15-2023 End: 93-91-1704tytk 1 tablet by mouth once daily as needed for muscle spasms cyclobenzaprine (FLEXERIL) 10 mg tablet Take 1 tablet (10 mg total) by mouth daily as needed for muscle spasms. 30 tablet 1 06/15/2023 07/15/2023 Discontinued (Therapy completed)diazePAM 5 mg oral tablet (11 sources)BenzodiazepineStart: 08-11-2023 End: 76-47-0133ixki 1 tablet by mouth every six hours as neededdiazePAM (VALIUM) 5 mg tablet Take 1 tablet (5 mg total) by mouth every 6 (six) hours as needed formuscle spasms. 08/11/2023 10/03/2023 Discontinued (Therapy completed) End: 52-40-6440iynw 1 mL by mouth in the morningdiazepam 5 mg/mL concentrate Take 1 mL by mouth in the morning and 1 mL before bedtime. 10/03/2023 D iscontinued (Therapy completed)escitalopram 10 mg oral tablet (1 source)Serotonin Reuptake InhibitorStart: 01-14-2023 End: 44-78-0717gyww 1 tablet by mouth in the morningescitalopram (LEXAPRO) 10 mg tablet Take 1 tablet (10 mg total) by mouth in the morning. 30 tablet 01/14/2023 06/15/2023 Discontinued (Side effects)ibuprofen 800 mg oral tablet (8 sources)Nonsteroidal Anti-inflammatory DrugStart: 06-15-2023 End: 61-61-7835dicj 1 tablet by mouth every six hours as needed for pain ibuprofen (MOTRIN) 800 mg tablet Take 1 tablet (800 mg total) by mouth every 6 (six) hours as needed for pain. 30 tablet 06/15/2023 07/15/2023 Discontinued (Therapy completed) End: 93-96-8797dqij 1 tablet by mouth every six hours as needed for pain ibuprofen (MOTRIN) 600 mg tablet Take 1 tablet (600 mg total) by mouth every 6 (six) hours as needed for pain. 10/03/2023 Discontinued (Ineffective)phentermine hydrochloride 37.5 mg oral tablet (11 sources)Sympathomimetic Amine AnorecticStart: 06-15-2023 End: 26-82-8115orxn 40-44.9 tablets by mouth once daily before breakfast phentermine (ADIPEX-P) 37.5 mg tablet Indications: Class 3 severe obesity due to excess calories without serious comorbidity with body mass index (BMI) of 40.0 to 44.9 in adult ([facility]) Take 1 tablet (37.5 mg total) by mouth every morning before breakfast. 20 tablet 09/18/2023 10/03/2023 Discontinued (Patient Stopped On Own)Triamcinolone (1 source)CorticosteroidStart: 48-32-5067OTIMNNP - 10 mg Dec, 40 mg Problems Active Problems Problem ClassificationProblemDateDocumented DateEpisodic/ChronicAcute and chronic tonsillitis (2 sources)Hypertrophy of adenoids; Translations: [Hypertrophy of tonsils]Onset: 62-73-9499FfablpkPveefbp disorders (20 sources)Anxiety disorder, unspecified; Translations: [Anxiety]Onset: 290925-31-8438HisuwbaXnxqyf (20 sources)Mild intermittent asthma, uncomplicated; Translations: [Reactive airway disease]Onset: 743032-97-8904NcefzjjJrlqtjvqglvfc and procreative management (2 sources)Sterilization requested; Translations: [Encounter for sterilization] Onset: 58-78-6478AiashaxnWsuqivsaui disorders (17 sources)Gastroesophageal reflux disease without esophagitis; Translations: [Gastro-esophageal reflux disease without esophagitis]Onset: 06-15-2023 67-87-1967ThcjiyoFychmampbm disorders (1 source)Esophageal disordersOnset: 24-32-4890Fhtys inflammatory condition of skin (1 source)Pityriasis simplex; Translations: [Seborrhea capitis]03-31-2024 EpisodicOther inflammatory condition of skin (6 sources)Seborrheic dermatitis; Translations: [Seborrheic dermatitis, unspecified]Onset: 107264-76-2365TlocayytCmjyj nutritional; endocrine; and metabolic disorders (1 source)Body mass index (BMI) 40.0-44.9, adult; Translations: [Body mass index (BMI) 40.0-44.9, adult]Onset: 26-41-3651NulaefzGzgvw nutritional; endocrine; and metabolic disorders (2 sources)Morbid (severe) obesity due to excess calories; Translations: [Morbid (severe) obesity due to excess calories]Onset: 84-41-9401CaammxwOzszg nutritional; endocrine; and metabolic disorders (2 sources)Body mass index (BMI) 45.0-49.9, adult; Translations: [Body mass index (BMI) 45.0-49.9, adult]Onset: 36-59-5050ZmboyygSdgza nutritional; endocrine; and metabolic disorders (16 sources)Severe obesity; Translations: [Class 3 severe obesity due to excess calories without serious comorbidity with body mass index (BMI) of 45.0 to 49.9 in adult ([facility])]Onset: 670146-80-8743JousvcwItpqs nutritional; endocrine; and metabolic disorders (2 sources)Morbid obesity; Translations: [Morbid (severe) obesity due to excess calories]39-17-5332JaxzigoBwfsn nutritional; endocrine; and metabolic disorders (4 sources)Abnormal weight gain; Translations: [ABNORMAL WEIGHT GAIN]Onset: 00-85-7000VjayraqpBpzgb upper respiratory disease (1 source)Allergic rhinitis; Translations: [Allergic rhinitis, unspecified] 72-27-8868EhnczsdKmnikcnu codes; unclassified (1 source)Other amnesia; Translations: [OTHER AMNESIA]Onset: 98-75-1476Avcprkcy Substance-related disorders (1 source)Nicotine dependence, cigarettes, uncomplicated; Translations: [NICOTINE DEPEND CIGARETTES UNCOMP]Onset: 31-19-4998WpmawsjXzkqmrurzxza (1 source)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)Onset: 12-82-3378Tgottuoydrpt (2 sources)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)Onset: 22-19-7813Zwqzaerohvcv (1 source)Obstructive sleep apnea (adult) (pediatric) / G47.33(ICD-10)Onset: 12-85-6301Xpauaiyklowc (1 source)Hypertrophy of adenoids / J35.2(ICD-10)Onset: 18-73-2891Fxmlmqjkwsdy (2 sources)Hypertrophy of tonsils / J35.1(ICD-10)Onset: 40-36-7881Bbizvirlrfxl (1 source)Nicotine dependence, unspecified, uncomplicated / F17.200(ICD-10) Onset: 16-93-3828Jftgmjlmoxic (1 source)Hypertrophy of tonsils with hypertrophy of adenoids / J35.3(ICD-10) Onset: 92-15-6809Jtnleplnylar (1 source)Snoring / R06.83(ICD-10)Onset: 93-93-6993Rbcgxdxvpqkt (1 source)Encounter for sterilization; Translations: [Encounter for sterilization]Onset: 76-50-4695Efgebiobevdf (1 source)OMTOnset: 70-36-3450Nqnoxvmfzjby (1 source)Weight CheckOnset: 36-01-9265Cbagzxoglhnu (1 source)Annual ExamOnset: 60-22-6127Secrcualtiqv (1 source)Obesity, class 3; Translations: [Obesity, class 3]Onset: 03-31-2024 Past or Other Problems Problem ClassificationProblemDateDocumented DateEpisodic/ChronicImmunizations and screening for infectious disease (2 sources)Contact with and (suspected) exposure to other viral communicable diseasesOnset: 02-18-2021 Resolved: 92-13-0629VohpyeawZxillrxtw (1 source)Influenza due to other identified influenza virus with other respiratory manifestationsOnset: 05-01-2021 Resolved: 42-60-9230AqjburmvOmro disorders (19 sources)Major depressive disorder, single episode, mild; Translations: [Mild major depression, single episode]Onset: 06-15-2023 Resolved: 338372-85-7779HrmunhfQbdo disorders (17 sources)Mood disordersOnset: 07-15-2023 Resolved: 117336-02-9469Vvtry ear and sense organ disorders (3 sources)Otalgia, left ear; Translations: [OTALGIA LEFT EAR]Onset: 05-05-2021 EpisodicOther upper respiratory infections (2 sources)Streptococcal pharyngitis; Translations: [Acute pharyngitis, unspecified]Onset: 02-18-2021 Resolved: 04-51-2977SfiewxacSwlkfi media and related conditions (20 sources)Acute serous otitis media, recurrent, bilateral; Translations: [Otitis media, unspecified, left ear]Onset: 03-16-2021 Resolved: 57-89-3386IuvkwefoIxkamrsyhri; intervertebral disc disorders; other back problems (7 sources)Radiculopathy, lumbar region; Translations: [Lumbago with sciatica, left side]Onset: 732549-30-7277WiioewvlWgwtzhj and strains (1 source)Strain of muscle at thorax level; Translations: [Strain of muscle and tendon of unspecified wall ofthorax, subsequent encounter]91-72-0507Vybqkwry Unclassified (1 source)Cough R05.9Onset: 05-01-2021 Resolved: 05-01-2021 Results Test NameValueInterpretationReference RangeFacilityProSoutheast Health [facility] Center Diabetes and Nutrition EducationKaiser Foundation Hospital 79-96-9435OysBlrmhmSelect Medical Specialty [facility] COMPREHENSIVE METABOLIC PANELon 41-59-5122Nevcztn [Mass/Vol]4.6 g/dLNormal 3.2-5.3PSelect Medical Specialty Hospital - YoungstownComment on above:Performed By: #### 05104-6, TSHR, CMP #### [facility] ([id number]) [address], [address] [place], [place] [address]BHH [Catalytic activity/Vol]36 U/APfh19-291GyePwyhxq [facility] HospitalComment on above:Performed By: #### 66682-7, TSHR, CMP #### [facility] ([id number]) [address], [address] [place], [place] [address]GDO [Catalytic activity/Vol]43 U/LHigh0-40Pro[facility]ica [facility]ana HospitalComment on above:Performed By: #### 85765-7, TSHR, CMP #### [facility] ([id number]) [address], [address] [place], [place] [address]Gzajz gap [Moles/Vol]11 mmol/LNormal5-15Pro[facility] HospitalComment on above:Performed By: #### 43419-3, TSHR, CMP #### [facility] ([id number]) [address], [address] [place], [place] [address]RUU [Catalytic activity/Vol]23 U/LNormal0-41Pro[facility] HospitalComment on above:Performed By: #### 69368-1, TSHR, CMP #### [facility] ([id number]) [address], [address] [place], [place] [address]Neukxxryu [Mass/Vol]0.3 mg/dLNormal0.3-1.2Pro[facility] HospitalComment on above:Performed By: #### 02394-4, TSHR, CMP #### [facility] ([id number]) [address], [address] [place], [place] [address]Wdpdtdw [Mass/Vol]9.6 mg/dLNormal8.5-10.5ProMedica [facility] HospitalComment on above:Performed By: #### 54276-1, TSHR, CMP #### [facility] ([id number]) [address], [address] [place], [place] [address]Pquzctcs [Moles/Vol]104 mmol/TDvguqy65-855QtfMqluzf [place] HospitalComment on above:Performed By: #### 37833-9 TSHR, CMP #### [facility] ([id number]) [address], [address] [place], [place] [address]TJ8 [Moles/Vol]24 mmol/LAcojly09-05QuzStndxoSelect Medical Specialty Hospital - [place] Comment on above:Performed By: #### 47600-0, TSHR, CMP #### [facility] ([id number]) [address], [address] [place], [place] [address]Wxjdqfcxnm [Mass/Vol]0.92 mg/dLNormal0.60-1.30ProKeenan Private HospitalComment on above:Result Comment: METHOD TRACEABLE TO IDMS STANDARD Performed By: #### 09074-3, TSHR, CMP #### [facility] ([id number]) [address], [address] [place], [place] [address]vNHO (CKD-EPI) NON-RACE DEPENDENT>90Normal>59ProKeenan Private HospitalComment on above:Result Comment: Reported eGFR is based on the CKD-EPI 2021 equation that does not use a race coefficient.Performed By: #### 28945-3, TSHR, CMP #### [facility] ([id number]) [address], [address] [place], [place] [address]Frdutub [Mass/Vol]104 mg/eFEmfv70-37UqmCvpbwiKeenan Private Hospital Comment on above:Performed By: #### 12125-4, TSHR, CMP #### [facility] ([id number]) [address], [address] [place], [place] [address]Cdhlzprgh [Moles/Vol]4.1 mmol/LNormal3.5-5.0ProKeenan Private HospitalComment on above:Performed By: #### 44796-5, TSHR, CMP #### [facility] ([id number]) [address], [address] [place], [place] [address]Duzrpqf [Mass/Vol]7.4 g/dLNormal6.0-8.0[facility] Comment on above:Performed By: #### 38587-2, TSHDavid, CMP #### [facility] ([id number]) [address], [facility] [address] [place], [place] [address]Ozonrb [Moles/Vol]139 mmol/OVxfhxh521-701NbjIcxacx [place] HospitalComment on above:Performed By: #### 09695-8, TSHDavid, CMP #### [facility] ([id number]) [address], [facility] [address] [place], [place] [address]Bqqx nitrogen [Mass/Vol]11 mg/dLNormal5-23ProKeenan Private HospitalComment on above:Performed By: #### 91061-5, TSHR, CMP #### [facility] ([id number]) [address], [address] [place], [place] [address]Qpozm 1996 panelon 47-19-6296Bauixonqbeb [Mass/Vol]180 mg/dL Fpvifs843-384XrwGsqifg [place] HospitalComment on above:Performed By: #### 34382- 1, TSHR, CMP #### [facility] ([id number]) [address], [facility] [address] [place], [place] [address]Fnayrdqxsdy in HDL [Mass/Vol]38 mg/dLLow>39ProKeenan Private HospitalComment on above:Result Comment: HDL <40 mg/dL - High Risk HDL > or = 40mg/dL- Desirable HDL >60 mg/dL - Negative Risk Performed By: #### 60359-8, TSHR, CMP #### [facility] ([id number]) [address], [address] [place] [address]Ljbirzymmhf in LDL [Mass/Vol]80 mg/dLNormal<130ProMediAultman Alliance Community Hospital HospitalComment on above:Result Comment: LDL <100 mg/dL - Desirable LDL >160 mg/dL - High Risk Performed By: #### 99319-3, TSHR, CMP #### [facility] ([id number]) [address], [facility] [address] [place] [address]Eiczefwufhz in VLDL [Mass/Vol]62 mg/dLHigh0-30ProMarietta Osteopathic Clinic HospitalComment on above:Performed By: #### 39084-0, TSHR, CMP #### [facility] ([id number]) [address], [facility] [address] [place] [address]TOCUQUXFKUM:HDL4.2Wjjhhg7.0-5.0ProMarietta Osteopathic Clinic HospitalComment on above:Performed By: #### 28144-5, TSHR, CMP #### [facility] ([id number]) [address], [facility] [address] [place] [address]Jegyrthqffbc [Mass/Vol]310 mg/bMJiff73-716XthCkwhpn [place] HospitalComment on above:Performed By: #### 61086-7, TSHR, CMP #### [facility] ([id number]) [address], [facility] [address] [place] [address]KWP WITH REFLEXon 23-48-4446KAR1.30 uIU/mLNormal0.49-4.67 [facility] HospitalComment on above:Performed By: #### 45780-3, TSHR, CMP #### [facility] ([id number]) [address], [facility] [address] [place] [address]Jhleoiviul Visit Summaryon 16-67-6936Lddjsggsaj Visit Summary SHARAD JOHANSEN :1990 Visit Date:11/19/2022 Ambulatory Visit Instructions Your Diagnosis S/P vasectomy Your Care Team Attending Physician - JP MCQUEEN, Domenic Hernandez Primary Care Physician - Rodriguez Maynard DO Procedures Performed Vasectomy (11/05/2022), Tonsillectomy. Discharge Vitals Heart Rate (Peripheral) 82 Respiratory Rate 16 Blood Pressure 136/84 Height 178 cm Height 70 in Weight 140 kg Weight 308 lb BMI 44.19 What to do next You Need to Schedule the Following Appointments Follow Up with JP MCQUEEN, Domenic Hernandez, URL When: Only if needed Where: [facility] [address], [place] [address] [phone] Allergies No Known Medication Allergies Problems Ongoing - Any problem that you are currently receiving treatment for. Encounter for vasectomy S/P vasectomy Education Materials Contraception Choices Contraception refers to things you do or use to prevent . It is also called control.There are several methods of control. Talk to your doctor about the best method for you. Hormonal control This kind of control uses hormones. Here are some types of hormonal control: ? A tube that is put under the skin of your arm (implant). The tube can stay in for up to 3 years. ? Shots you get every 3 months. ? Pills you take every day. ? A patch you change 1 time each week for 3 weeks. After that, the patch is taken off for 1 week. ? A ring you put in the vagina. The ring is left in for 3 weeks. Then it is taken out of the vagina for 1 week. Then a new ring is put in. ? Pills you take after unprotected sex. These are called emergency control pills. Barrier control Here are some types of barrier control: ? A thin covering that is put on the penis before sex (male condom). The covering is thrown away after sex. ? A soft, loose covering that is put in the vagina before sex (female condom). The covering is thrownaway after sex. ? A rubber bowl that sits over the cervix (diaphragm). The bowl must be made for you. The bowl is putinto the vagina before sex. The bowl is left in for 6?8 hours after sex. It is taken out within 24 hours. ? A small, soft cup that fits over the cervix (cervical cap). The cup must be made for you. The cup should be left in for 6?8 hours after sex. It is taken out within 48 hours. ? A sponge that is put into the vagina before sex. It must be left in for at least 6 hours after sex.It must be taken out within 30 hours and thrown away. ? A chemical that kills or stops sperm from getting into the womb (uterus). This chemical is called aspermicide. It may be a pill, cream, jelly, or foam to put in the vagina. The chemical should be used at least 10?15 minutes before sex. IUD control IUD means intrauterine device. It is put inside the womb. There are two kinds: ? Hormone IUD. This kind can stay in the womb for 3?5 years. ? Copper IUD. This kind can stay in the womb for 10 years. Permanent control Here are some types of permanent control: ? Surgery to block the fallopian tubes. ? Having an insert put into each fallopian tube. This method takes 3 months to work. Other forms of control must be used for 3 months. ? Surgery to tie off the tubes that carry sperm in men (vasectomy). This method takes 3 months to work. Other forms of control must be used for 3 months. Natural planning control Here are some types of natural planning control: ? Not having sex on the days the woman could get . ? Using a calendar: ? To keep track of the length of each menstrual cycle. ? To find out what days can happen. ? To plan to not have sex on days when can happen. ? Watching for signs of ovulation and not having sex during this time. One way the woman can check for ovulation is to check her temperature. ? Waiting to have sex until after ovulation. Where to find more information ? Centers for Disease Control and Prevention: www.cdc.gov Summary ? Contraception, also called control, refers to things you do or use to prevent . ? Hormonal methods of control include implants, injections, pills, patches, vaginal rings, and emergency control pills. ? Barrier methods of control can include male condoms, female condoms, diaphragms, cervical caps, sponges, and spermicides. ? There are two types of IUD (intrauterine device) control. An IUD can be put in a woman's wombto prevent for several years. ? Permanent control can be done through a procedure for males, females, or both. Natural planning means not having sex when the woman could get . This information is not intended to replace advice given to you by your health care provider (more content not included)...[facility] Operative Reporton [id number] Report [id number]#1.00TIFFNormalCleveland Clinic Avon HospitalPatient Educationon [id number] EducationObstetrics and Gynecology Contraception Choices Contraception refers to things you do or use to prevent . It is also called control.There are several methods of control. Talk to your doctor about the best method for you. Hormonal control This kind of control uses hormones. Here are some types of hormonal control: ? A tube that is put under the skin of your arm (implant). The tube can stay in for up to 3 years. ? Shots you get every 3 months. ? Pills you take every day. ? A patch you change 1 time each week for 3 weeks. After that, the patch is taken off for 1 week. ? A ring you put in the vagina. The ring is left in for 3 weeks. Then it is taken out of the vaginafor 1 week. Then a new ring is put in. ? Pills you take after unprotected sex. These are called emergency control pills. Barrier control Here are some types of barrier control: ? A thin covering that is put on the penis before sex (male condom). The covering is thrown away after sex. ? A soft, loose covering that is put in the vagina before sex (female condom). The covering is thrown away after sex. ? A rubber bowl that sits over the cervix (diaphragm). The bowl must be made for you. The bowl is put into the vagina before sex. The bowl is left in for 6?8 hours after sex. It is taken out within 24 hours. ? A small, soft cup that fits over the cervix (cervical cap). The cup must be made for you. The cupshould be left in for 6?8 hours after sex. It is taken out within 48 hours. ? A sponge that is put into the vagina before sex. It must be left in for at least 6 hours after sex. It must be taken out within 30 hours and thrown away. ? A chemical that kills or stops sperm from getting into the womb (uterus). This chemical is calleda spermicide. It may be a pill, cream, jelly, or foam to put in the vagina. The chemical should be used at least 10?15 minutes before sex. IUD control IUD means intrauterine device. It is put inside the womb. There are two kinds: ? Hormone IUD. This kind can stay in the womb for 3?5 years. ? Copper IUD. This kind can stay in the womb for 10 years. Permanent control Here are some types of permanent control: ? Surgery to block the fallopian tubes. ? Having an insert put into each fallopian tube. This method takes 3 months to work. Other forms ofbirth control must be used for 3 months. ? Surgery to tie off the tubes that carry sperm in men (vasectomy). This method takes 3 months to work. Other forms of control must be used for 3 months. Natural planning control Here are some types of natural planning control: ? Not having sex on the days the woman could get . ? Using a calendar: ? To keep track of the length of each menstrual cycle. ? To find out what days can happen. ? To plan to not have sex on days when can happen. ? Watching for signs of ovulation and not having sex during this time. One way the woman can check for ovulation is to check her temperature. ? Waiting to have sex until after ovulation. Where to find more information ? Centers for Disease Control and Prevention: www.cdc.gov Summary ? Contraception, also called control, refers to things you do or use to prevent . ? Hormonal methods of control include implants, injections, pills, patches, vaginal rings, and emergency control pills. ? Barrier methods of control can include male condoms, female condoms, diaphragms, cervical caps, sponges, and spermicides. ? There are two types of IUD (intrauterine device) control. An IUD can be put in a woman's womb to prevent for several years. ? Permanent control can be done through a procedure for males, females, or both. Natural planning means not having sex when the woman could get . This information is not intended to replace advice given to you by your health care provider. Make sure you discuss any questions you have with your health care provider. Document Revised: 07/07/2020 Document Reviewed: 07/07/2020 [employer] Patient Education ? 2022 [employer].[facility] Urology Office/Clinic Noteon [id number] Office/Clinic NoteChief Complaint post op vasectomy HPI Staff 32 yo male here for f/u to vasectomy 11/05/22. Previous Dx: encounter for vasectomy. Pt is doing well with no complaints at this time. Dysuria: no Incomplete bladder emptying: no Hematuria: no Frequency: no Urgency: no Nocturia: no Stream: good strong Leaking: no Post void dripping: no Wearing pads/ Depends: no Urge incontinence: no Stress incontinence: no Incontinence without Sensory Awareness: no Abdominal pain: no Flank pain: no Sexual complaints: no History of Present Illness Tests reviewed: path reports I have reviewed the previous health record information and history for this patient from Dr. Trammell. I have reviewed and verified the staff HPI to be accurate for this encounter. Review of Systems PHQ Score Initial Depression Screen Score: 0 ROS - Provider Constitutional: denies weight loss, denies hot flashes. Eyes: denies eye problems. Gastrointestinal: denies nausea, denies vomiting. Cardiovascular: denies chest pain or angina. Integumentary: no dryness Musculoskeletal: denies musculoskeletal symptoms. ENMT: denies otolaryngeal symptoms. Respiratory: no shortness of breath. Heme/Lymph: denies easy bleeding tendency, denies easy bruising tendency. Psychiatric: no confusion, no anxiety. Genitourinary: See HPI. Physical Exam Vitals & Measurements HR: 82(Peripheral) RR: 16 BP: 136/84 HT: 70 in HT: 178 cm WT: 140 kg WT: 308 lb BMI: 44.19 General Appearance: alert, no distress, well nourished, well developed male. Genitourinary: normal scrotum, normal testes, normal urethra, normal epididymis, normal vas deferens/spermatic cord. Flank Pain: none. Bladder: nonpalpable. Assessment/Plan 1. S/P vasectomy (Z98.52: Vasectomy status) S/p vasectomy 11/05/22. Path report - neg. No issues or concerns since procedure. Healing well. He is aware that he is not sterile until he has 2 negative semen analysis which will be checked after about two months and after 20-30 ejaculations. He should deliver the semen specimen to the lab within 30 min. of ejaculation and he will call one week later to get the results. Pt understands to use contraceptives until sterility is confirmed. Follow up PRN. Pt understands and agrees with plan. Order, sterile cup, and instructions, given to pt for post op vas semen analysis. Follow-up With When Contact Information JP MCQUEEN, Domenic Hernandez, URL Only if needed [facility] [address], [place] [address]- [phone] Additional Instructions: Patient Education Contraception Choices, Cnvh-nu-Moiq IStefanie, personally scribed for Dr. Trammell on 11/19/2022 09:42:04. . Documentation recorded by the scribeStefanie, accurately reflects the services(s) I performed and decisions made by me. Authenticated by Dr. Trammell on 11/19/2022 09:49:30. Problem List/Past Medical History Ongoing Encounter for vasectomy S/P vasectomy Historical No qualifying data Procedure/Surgical History Vasectomy (11/05/2022), Tonsillectomy. Medications No active medications Allergies No Known Medication Allergies Social History Tobacco Never (less than 100 in lifetime) Tobacco Use:. Never Smokeless Tobacco Use:., 11/27/2021 Family History Family history is unknown Immunizations Vaccine Date Status SARS-CoV-2 (COVID-19) mRNA BNT-162b2 vax 06/05/2020 Recorded SARS-CoV-2 (COVID-19) mRNA BNT-162b2 vax 05/15/2020 Recorded diphtheria/pertussis, acel/tetanus adult 02/03/2018 Recorded diphtheria/pertussis, acel/tetanus adult 08/23/2013 Recorded meningococcal conjugate vaccine 03/13/2009 Recorded influenza virus vaccine, inactivated 11/30/2000 Recorded measles/mumps/rubella virus vaccine 02/25/2000 Recorded varicella virus vaccine 08/15/1997 Recorded DTaP, unspecified formulation 08/15/1997 Recorded hepatitis B pediatric vaccine 05/28/1993 Recorded DTaP, unspecified formulation 05/28/1993 Recorded measles/mumps/rubella virus vaccine 12/26/1992 Recorded hepatitis B pediatric vaccine 12/26/1992 Recorded Hib, unspecified formulation 12/26/1992 Recorded hepatitis B pediatric vaccine 06/11/1992 Recorded Hib, unspecified formulation 03/13/1992 Recorded DTaP, unspecified formulation 03/13/1992 Recorded Hib, unspecified formulation 02/01/1992 Recorded DTaP, unspecified formulation 02/01/1992 Recorded Hib, unspecified formulation 1991 Recorded DTaP, unspecified formulation 1991 RecordedBlanchard Valley Health System Bluffton HospitalComment on above:Result Comment: Electronically Signed By: JP MCQUEEN, Domenic Hernandez\.br\Date and Time Signed: 11/19/22 09:49 EDT\.br\Electronically Co- Signed By: Stefanie Echeverria\.br\Date and Time Co-Signed: 11/19/22 09:45 EDT Pathology Noteon [id number] Note [id number]#1.00CD:127[facility] Bluffton HospitalLon 11-05-2022L Specimen: [id number] Received: 11/05/22 Status: AMADO Freeman Num: [id number] Spec Type: Surgical Subm Dr: Domenic Trammell MD Tissues: A VAS DEFERENS - sterilization (LT VAS) B VAS DEFERENS - sterilization (RT VAS) Procedures: HE/2, Gross/Micro L2/2 Age/ Patient Sex Location Account Attending Physician Sharad Carr 32/[facility] [id number] Domenic Trammell MD SPEC NUM: [id number] RECD: 11/05/22 STATUS: AMADO FREEMAN NUM: [id number] CORI: 11/05/[address] [facility] [address]: Domenic Trammell MD ENTERED: 11/05/22 [facility] DR: [facility] SPEC TYPE: Surgical DEPT: S ENTERED BY: [id number] RECV BY: [id number] ORDERED: HE/2, Gross/Micro L2/2 ORDERED: HE/2, Gross/Micro L2/2 Pathological Diagnosis A. Left vas deferens segment, vasectomy: - Segmental portion of vas deferens with apparent complete cross section, and without any other specific changes observed B. Right vas deferens segment, vasectomy: - Segmental portion of vas deferens with apparent complete cross section, and without any other specific changes observed Clinical Information Sterilization Gross Description A. Received in formalin labeled with the patient's name, date of and left vas deferens segment is a 1.5 x 0.3 cm lewis-alfonso tubular tissue with a pinpoint lumen on cut section. Entirely submitted in one cassette labeled A1. B. Received in formalin labeled with the patient's name, date of and right vas deferens segment is a 0.8 x 0.3 cm lewis-alfonso tubular tissue with a pinpoint lumen on cut section. Entirely submitted in one cassette labeled B1. Specimen: [id number] Received: 11/05/22 Status: AMADO Freeman Num: [id number] Spec Type: Surgical Subm Dr: Domenic Trammell MD Tissues: A VAS DEFERENS - sterilization (LT VAS) B VAS DEFERENS - sterilization (RT VAS) Procedures: HE/Rea, Silvia/Ivy L2/2 Patient: Sharad Carr [id number] (Continued) Specimen: [id number] Received: 11/05/22 (Continued) Signed (signature on file) Chin-Lebron Toscano, MD 11/08/22 1510 Specimen: [id number] Received: 11/05/22 Status: AMADO Freeman Num: [id number] Spec Type: Surgical Subm Dr: Domenic Trammell MD Tissues: A VAS DEFERENS - sterilization (LT VAS) B VAS DEFERENS - sterilization (RT VAS) Procedures: HE/Rea, Silvia/Micro L2/2 Patient: Sharad Carr [id number] (Continued) Specimen: [id number] Received: 11/05/22 (Continued) Microscopic Description A. One H E slide reviewed. The microscopic examination confirms the diagnosis. B. One H E slide reviewed. The microscopic examination confirms the diagnosis. CPT Codes 30988l2 Specimen: [id number] Received: 11/05/22 Status: AMADO Freeman Num: [id number] Spec Type: Surgical Subm Dr: Domenic Trammell MD Tissues: A VAS DEFERENS - sterilization (LT VAS) B VAS DEFERENS - sterilization (RT VAS) Procedures: Silvia CAST/Ivy L2/2 Patient: Sharad Carr [id number] (Continued) Signed (signature on file) Fam Toscano MD 11/08/22 1510AnthonyLancaster Municipal HospitalPre-Certification Formon 10-14-2022 Pre-Certification [id number]#1.00CD:127Normal [facility] HospitalInsurance Correspondenceon [id number] [id number]#1.00CD:127EssieDiley Ridge Medical CenterConsent for Procedure/Surgeryon [id number] for Procedure/[id number]#1.00CD:DenyBlanchard Valley Health System Bluffton HospitalPatient Letter [id number] Letter [facility] April 26, 2022 [address]EN [address] [place] [phone] Dear Sharad Johansen, [facility] has been trying to reach you regarding scheduling a Vasectomy procedure. Your voicemail is full and we are unable to leave a message. If you wish to proceed with having this procedure done, please call the office so we can get you on the schedule. Sincerely, [facility], , Option #3[facility] HospitalFormson 11-27-2021 [id number]:DenyBlanchard Valley Health System Bluffton HospitalPhysician Referralon 80-63-4715Dzvqujsuo Referral [id number]#1.00CD:[address] [place], [place] [address]Patient Educationon [id number] EducationUrology Vasectomy, Care After This sheet gives you information about how to care for yourself after your procedure. Your health care provider may also give you more specific instructions. If you have problems or questions, contact your health care provider. What can I expect after the procedure? After your procedure, it is common to have: ? Mild pain, swelling, redness, or discomfort in your scrotum. ? Some blood coming from your incisions or puncture sites for one or two days. ? Blood in your semen. Follow these instructions at home: Medicines ? Take vvel-vxo-ddjrmyi and prescription medicines only as told by your health care provider. ? Avoid taking NSAIDs such as aspirin and ibuprofen, because these medicines can make bleeding worse. Activity ? For the first 2 days after surgery, avoid physical activity and exercise that require a lot of energy. Ask your health care provider what activities are safe for you. ? Do not participate in sports or perform heavy physical labor until your pain has improved, or until your health care provider says it is okay. ? Do not ejaculate for at least 1 week after the procedure, or as long as directed. ? You may resume sexual activity 7?10 days after your procedure, or when your health care provider approves. Use a different method of control (contraception) until you have had test results that confirm that there is no sperm in your semen. Scrotal support ? Use scrotal support, such as a jock strap or underwear with a supportive pouch, as needed for oneweek after your procedure. ? If you feel discomfort in your scrotum, you may remove the scrotal support to see if the discomfort is relieved. Sometimes scrotal support can press on the scrotum and cause or worsen discomfort. ? If your skin gets irritated, you may add some germ-free (sterile), fluffed bandages or a clean washcloth to the scrotal support. General instructions ? Put ice on the injured area: ? Put ice in a plastic bag. ? Place a towel between your skin and the bag. ? Leave the ice on for 20 minutes, 2?3 times a day. ? Check your incisions or puncture sites every day for signs of infection. Check for: ? Redness, swelling, or pain. ? Fluid or blood. ? Warmth. ? Pus or a bad smell. ? Leave stitches (sutures) in place. The sutures will dissolve on their own and do not need to be removed. ? Keep all follow-up visits as told by your health care provider. This is important because you will need a test to confirm that there is no sperm in your semen. Multiple ejaculations are needed to clear out sperm that were beyond the vasectomy site. You will need one test result showing that thereis no sperm in your semen before you can resume unprotected sex. This may take 2?4 months after your procedure. ? Do not drive for 24 hours if you were given a sedative to help you relax. Contact a health care provider if: ? You have redness, swelling, or more pain around your incision or puncture site, or in your scrotum area in general. ? You have bleeding from your incision or puncture site. ? You have pus or a bad smell coming from your incision or puncture site. ? You have a fever. ? Your incision or puncture site opens up. Get help right away if: ? You develop a rash. ? You have difficulty breathing. Summary ? After your procedure it is common to have mild pain, swelling, redness, or discomfort in your scrotum. ? Avoid physical activity and exercise that requires a lot of energy for the first 2 days after surgery. ? Put ice on the injured area. Leave the ice on for 20 minutes, 2?3 times a day. ? Do not drive for 24 hours if you were given a sedative to help you relax. This information is not intended to replace advice given to you by your health care provider. Make sure you discuss any questions you have with your health care provider. Document Released: 08/20/2005 Document Revised: 01/13/2018 Document Reviewed: 04/29/2017 [employer] Patient Education ? 2019 [employer].[facility] T4 LABCORPon [id number] [Mass/Vol]8.3 ug/dLNormal4.5-12.0[facility] Comment on above:Performed By: #### T4LC #### [facility] [address] [place] [address] Dr. Adriana Pope AUTO DIFFon [id number] #0.1 103/ulNormal0.0-0.1St. [facility]'S HospitalComment on above:Performed By: #### CBC #### [facility] [address] [address] [address] Adriana ToscanoBasophils/100 WBC (Bld)1.1 %Normal0.2-2.0[facility] Comment on above:Performed By: #### CBC #### [facility] [address] [place] [address] Dr. Wright ChangEChauncey #0.5 103/ulNormal0.0-0.7The [facility] - WestComment on above: Performed By: #### CBC #### [facility] [address] [address] [address] Adriana Monzonosinophils/100 WBC (Bld)5.1 %Normal0.9-7.0The [facility] Comment on above:Performed By: #### CBC #### [facility] [address] [place] [address] Dr. Adriana Monzonrythrocyte distribution width (RBC) [Ratio]13.0 %Lyheif62.0-15.0 The [facility] - WestComment on above:Performed By: #### CBC #### [facility] [address] [place] [address] Dr. Adriana ToscanoHematocrit (Bld) [Volume fraction]45.1 %Opngtn20.0-54.0The [facility] - WestComment on above:Performed By: #### CBC #### [facility] [address] [place] [address] Dr. Adriana ToscanoHemoglobin (Bld) [Mass/Vol]15.1 g/pUZdwomt68.0-18.0The [facility] Ohioment on above:Performed By: #### CBC #### [facility] [address] [place] [address] Dr. Adriana Floyd #0.02 10e3/ulNormal0.00-0.03The [facility] Ohioment on above:Performed By: #### CBC #### [facility] [address] [place] [address] Dr. Adriana Floyd %0.2 %Normal0.0-0.5The [facility] Ohioment on above: Performed By: #### CBC #### [facility] [address] [place] [address] Dr. Adriana GarciaH #3.4 103/ulNormal1.2-3.8The [facility]Com[facility] on above:Performed By: #### CBC #### [facility] [address] [place] [address] Dr. Adriana Subramanianmphocytes/100 WBC (Bld)33.3 %Ocllby89.5-60.0The [facility]ell HospitalComment on above:Performed By: #### CBC #### [facility] [address] [address] [address] Adriana Hendrix DIFF REQNONormalThe [facility] - WestComment on above: Performed By: #### CBC #### [facility] [address] [address] [address] Adriana Duque (RBC) [Entitic mass]29.4 msCbbbgs17.9-34.0The [facility] - WestComment on above:Performed By: #### CBC #### [facility] [address] [place] [address] Dr. Adriana Duque (RBC) [Mass/Vol]33.5 g/kJWtihbv75.9-35.2The [facility] - WestComment on above:Performed By: #### CBC #### [facility] [address] [place] [address] Dr. Adriana Duque (RBC) [Entitic vol]87.9 yCUabspj23.0-94.0The [facility] Ohioment on above:Performed By: #### CBC #### [facility] [address] [place] [address] Dr. Adriana Aguilar #1.0 103/ulCritically high0.3-0.8ThBarnesville Hospital Comment on above:Performed By: #### CBC #### [facility] [address] [place] [address] Dr. Adriana Keenanocytes/100 WBC (Bld)9.9 %Normal1.7-12.0[facility] Comment on above:Performed By: #### CBC #### [facility] [address] [place] [address] Dr. Adriana Ramos #5.1 103/ulNormal1.4-6.5The [facility] on above:Performed By: #### CBC #### [facility] [address] [place] [address] Dr. Adriana Melendezutrophils/100 WBC (Bld)50.4 %Uzrdtz77.0-75.0The [facility] - WestComment on above:Performed By: #### CBC #### [facility] [address] [place] [address] Dr. Adriana Bradshawlet mean volume (Bld) [Entitic vol]10.8 fLNormal9.5-13.5The [facility] WestComment on above:Performed By: #### CBC #### [facility] [address] [place] [address] Dr. Adriana ToscanoPLT221 103/gtJeohaa965-409Bsl [facility] WestComment on above: Performed By: #### CBC #### [facility] [address] [place] [address] Dr. Adriana ToscanoRBC5.13 106/ulNormal4.70-6.10The [facility] WestComment on above:Performed By: #### CBC #### [facility] [address] [place] [address] Dr. Adriana ToscanoWBC10.1 103/ulNormal4.0-11.0The [facility] WestComment on above:Performed By: #### CBC #### [facility] [address] [place] [address] Dr. Adriana Wilburn 14(COMP METB)on 45-58-3007Tdqafto [Mass/Vol]4.2 g/dLNormal 3.4-5.0The [facility] WestComment on above:Performed By: #### CMP, TSH #### [facility] [address] [place] [address] Dr. Adriana ToscanoAlbumin/Globulin [Mass ratio]1.2 {ratio}NormalThe [facility] WestComascension [facility] on above:Performed By: #### CMP, TSH #### [facility] [address] [place] [address] Dr. Adriana Tucker [Catalytic activity/Vol]40 U/LCritically ztw38-635Xvm [facility] on above:Performed By: #### CMP, TSH #### [facility] [address] [place] [address] Dr. Yilan ChangALT [Catalytic activity/Vol]35 U/TBeeefg62-44Sgh [facility] WestComment on above:Performed By: #### CMP, TSH #### [facility] [address] [place] [address] Dr. Adriana Gonzales gap [Moles/Vol]12.1 mmol/LNormalSt. Rita'S Hospital Comment on above:Performed By: #### CMP, TSH #### [facility] [address] [place] [address] Dr. Adriana ToscanoAST [Catalytic activity/Vol]15 U/EBorsxk06-31Nks [facility] WestComment on above:Performed By: #### CMP, TSH #### [facility] [address] [place] [address] Dr. Adriana ToscanoBilirubin [Mass/Vol]0.4 mg/dLNormal0.2-1.0[facility] Comment on above:Performed By: #### CMP, TSH #### [facility] [address] [place] [address] Dr. Adriana ToscanoCalcium [Mass/Vol]9.6 mg/dLNormal8.5-10.1[facility] Comment on above:Performed By: #### CMP, TSH #### [facility] [address] [place] [address] Dr. Adriana ToscanoChloride [Moles/Vol]103 mmol/GZtypco29-762TizSt. Rita'S Hospital Comment on above:Performed By: #### CMP, TSH #### [facility] [address] [place] [address] Dr. Adriana ToscanoCO2 [Moles/Vol]27.7 mmol/IKchlsp96.0-32.0The [facility] Comment on above:Performed By: #### CMP, TSH #### [facility] [address] [place] [address] Dr. Adriana ToscanoCreatinine [Mass/Vol]0.93 mg/dLNormal0.70-1.30The [facility] WestComment on above:Performed By: #### CMP, TSH #### [facility] [address] [place] [address] Dr. Adriana MonzonGFR-AF CHINESE>60Normal>=60The [facility] WestComment on above:Performed By: #### CMP, TSH #### [facility] [address] [place] [address] Dr. Adriana MonzonGFR-NON AF CHINESE>60Normal>=60The [facility] WestComment on above:Performed By: #### CMP, TSH #### [facility] [address] [address] [address] Adriana ToscanoGlobulin (S) [Mass/Vol]3.4 g/dLNormalThe [facility] WestComment on above:Performed By: #### CMP, TSH #### [facility] [address] [place] [address] Dr. Adriana ToscanoGlucose [Mass/Vol]96 mg/fZSphtxm72-345OylSt. Rita'S Hospital Comment on above:Performed By: #### CMP, TSH #### [facility] [address] [place] [address] Dr. Adriana ToscanoPotassium [Moles/Vol]3.8 mmol/LNormal3.5-5.1The [facility] Comment on above:Performed By: #### CMP, TSH #### [facility] [address] [place] [address] Dr. Adriana ToscanoProtein [Mass/Vol]7.6 g/dLNormal6.4-8.2[facility] Comment on above:Performed By: #### CMP, TSH #### [facility] [address] [place] [address] Dr. Adriana ToscanoSodium [Moles/Vol]139 mmol/TFqulnc947-216DjuSt. Rita'S Hospital Comment on above:Performed By: #### CMP, TSH #### [facility] [address] [place] [address] Dr. Adriana ToscanoUrea nitrogen [Mass/Vol]7.0 mg/dLNormal7.0-18.0The [facility] WestComment on above:Performed By: #### CMP, TSH #### [facility] [address] [place] [address] Dr. Adriana Rm nitrogen/Creatinine [Mass ratio]7.5 mg/mgNoBrecksville VA / Crille HospitalComment on above:Performed By: #### CMP, TSH #### [facility] [address] [place] [address] Dr. Adriana Hudson 14-68-6366NOW5.073 uIU/mLNormal0.358-3.740The [facility] - WestComment on above:Performed By: #### CMP, TSH #### [facility] [address] [place] [address] Dr. Adriana ToscanoCONARINDER Quick Testingon 82-85-3711XpqxqcOqmlzfyvHlsty Coast ROI² Other quick Fluon 22-28-0118FPKIU Ab CF (S) [Titer]Positive [facility] ROI² Other FLUBV Ab CF (S) [Titer]NegativeAstria Toppenish Hospital ROI² Other COVID Quick Testingon 56-42-5755NsckhgAismicrbHkted Coast ROI² Other COVIF Quick Testingon 98-56-5004UtaaeiBjodpsbhKbfuy [employer] Other quick Strepon 02-18-2021. pyogenes Org specific cx Ql (Throat)PositiveWaldo [employer] Other quick StrepWaldo [employer] Other [facility] Surgical Pathology Departmenton 80-04-8151JMF Surgical Pathology DepartmentName CAMILONaveedSHARAD DEL VALLE Pathologist: FORTINO JUAREZ, MDDate of Procedure: 03/02/2017Date Received: 03/02/2017Date Reported 03/04/2017Submitting Physician: FIDELINA BOJORQUEZ M.D.Locatio n: TMOR Other External # FINAL DIAGNOSISLEFT OROPHARYNGEAL LESION: --SQUAMOUS PAPILLOMA.jkwThe gross and/or microscopic findings were reviewed in conjunction withpathology resident, Nafiseh Patti, M.D. Electronically Signed Out By FORTINO JUAREZ MD/Stephanie the signature on this report, the individual or group listed as making theFinal Interpretation/Diagnosis certifies that they have reviewed thiscase. Clinical History:Hypertrophy of tonsilSpecimens Submitted As:A: LEFT OROPHARYNGEAL LESION Gross Description:A: Received in formalin, labeled with the patient's name and hospital numberis one piece of exophytic (wartlike) mass measuring 1.5 x 0.9 x 0.9 cm. Thepossible stalk is inked black. Thespecimen is bisected and entirely submittedin one cassette.NXJnxj/03/02/2017[facility] CenterComment on above:Performed By: #### [facility] ####[facility] Surgical Pathology [address] AveCElyria Memorial [facility] [address] Vital Signs Date TimeVital SignValuePerforming KwlzjsaszXusvqjcv23-23-4987 14:15-0500Body wgpoon175.8 cmNanenid Jaron MICHAEL Work Phone: [facility]03-07-2025 14:15-0500Body mass index (BMI) [Ratio]48.35 kg/t6Rbiweenid RODRIGUEZ Work Phone: [facility] Wykvin38-61-5491 14:15-0500Body shqaxi885.86 kgNanenid RODRIGUEZ Work Phone: [facility] [employer] Fhibzn33-89-4709 08:03-0500Body ghejoe815.8 cmAlyshaalvin Bernal APPEALS NURSE-LINER ASSEMBLER Work Phone: [facility] [employer] Epibhe51-15-7229 08:03-0500Body mass index (BMI) [Ratio]48.35 kg/n7Lcrmam Dolores APPEALS NURSE-LINER ASSEMBLER Work Phone: [facility] Wofria70-08-1253 08:03-0500Body ueffqr247.86 kgBralvin Bernal APPEALS NURSE-LINER ASSEMBLER Work Phone: [facility] Wvzbkp07-07-9266 08:51-0400Body sdatgq552.8 cmDenallan Littlelong DO Work Phone: [facility] [employer] Mzzhty61-39-8018 08:51-0400Body mass index (BMI) [Ratio]45.08 kg/o9Vwntla Furlong DO Work Phone: [facility] [employer] Xmouve03-58-4188 08:51-0400Body alepuumttao38.59 [degF]Aelxey Littlelong DO Work Phone: [facility] [employer] Llwcql68-27-3533 08:51-0400Body jdikrq877.52 kgDenallan Littlelong DO Work Phone: [facility] [employer] Bekvjy86-67-7543 08:51-0400Diastolic blood vlutpubs72 mm[Hg]Alexey Barbosang DO Work Phone: [facility] [employer] Mpydtn46-90-5846 08:51-0400Heart rate 100 /Noe Barbosang DO Work Phone: [facility] [employer] Fstgry35-47-1689 08:51-0400 Respiratory rate18 /Noe Barbosang DO Work Phone: [facility] [employer] Drrose51-16-8039 08:51-7871CuK6% (BldA) [Mass fraction]97 %Alexey Littlelong DO Work Phone: [facility] [employer] Ujdehs86-44-4372 08:51-0400Systolic blood torgceym827 mm[Hg]Alexey Barbosang DO Work Phone: [facility] [employer] Lslige35-91-8936 11:38-0400Body vsesfl133.8 cmAlexey Littlelong DO Work Phone: [facility] [employer] Ysmmcp03-66-8491 11:38-0400Body mass index (BMI) [Ratio]44.8 kg/i5MujaayAlexey Littlelong DO Work Phone: [facility] [employer] Zsoxyw01-35-5658 11:38-0400Body trsmgumqgri59.9 [degF]Alexey Barbosang DO Work Phone: [facility] [employer] Dvldny04-23-2440 11:38-0400Body ikcygl280.61 kgAlexey Shah DO Work Phone: [facility] [employer] Idcaqb60-48-7415 11:38-0400Diastolic blood uzmkvwzd22 mm[Hg]Alexey Shah DO Work Phone: [facility] [employer] Jqszui75-81-5716 11:38-0400Heart rate 97 /Noe Barbosang DO Work Phone: [facility] [employer] Lgqqhw11-98-1542 11:38-0400 Respiratory rate18 /Noe Barbosang DO Work Phone: [facility] [employer] Vdnbxk14-19-5786 11:38-7263CqV6% (BldA) [Mass fraction]97 %Alexey Shah DO Work Phone: [facility] [employer] Ikqtez43-33-0140 11:38-0400Systolic blood omrwzqfr354 mm[Hg]Alexey Shah DO Work Phone: [facility] [employer] Yydyzy68-25-6350 09:17-0400Body yxbxqp354.8 cmGuzman Bernal APRN-LINER ASSEMBLER Work Phone: [facility] [employer] Blgmcb74-54-0546 09:17-0400Body mass index (BMI) [Ratio]45 kg/m3ThamvtGuzman Bernal APRN-LINER ASSEMBLER Work Phone: [facility] [employer] Dazslp59-56-2694 09:17-0400Body zarsxcpzdbd98.01 [degF]Guzman Bernal APRN-LINER ASSEMBLER Work Phone: [facility] [employer] Psvzim54-27-4019 09:17-0400Body xyszez802.25 kgGuzman Bernal APRN-LINER ASSEMBLER Work Phone: [facility] [employer] Nrcujo70-53-5281 09:17-0400Diastolic blood jlduvnfj56 mm[Hg]Guzman Bernal APPEALS NURSE-LINER ASSEMBLER Work Phone: [facility] [employer] Fghxdj54-26-2285 09:17-0400Heart rate 95 /minBralvin Bernal APRN-LINER ASSEMBLER Work Phone: [facility] [employer] Imlhlp97-45-2257 09:17-0400 Respiratory rate18 /minGuzman Bernal APRN-LINER ASSEMBLER Work Phone: [facility]05-31-2024 09:17-7176ElZ6% (BldA) [Mass fraction]97 %Guzman Bernal APRN-ALFREDO Work Phone: [facility]05-31-2024 09:17-0400Systolic blood xzukeacu967 mm[Hg]Guzman Bernal APRN-LINER ASSEMBLER Work Phone: [facility] [employer] Isuggz14-03-6885 08:41-0400Body lgtecf270.8 cmGuzman PANIAGUA Work Phone: [facility] [employer] Pzzieu91-90-0121 08:41-0400Body mass index (BMI) [Ratio]46.66 kg/r2LqntmiGuzman Bernal APRN-ALFREDO Work Phone: [facility] [employer] Xhsniv00-21-8133 08:41-0400Body ccaimewoxce43.2 [degF]Guzman Bernal APRN-ALFREDO Work Phone: [facility] [employer] Lnhxro34-46-8774 08:41-0400Body wqkiij855.51 kgGuzman Bernal APRN-ALFREDO Work Phone: [facility] [employer] Tpjogd06-25-1613 08:41-0400Diastolic blood cpjmiohz43 mm[Hg]Guzman Bernal APRN-LINER ASSEMBLER Work Phone: [facility] [employer] Peznad01-24-4275 08:41-0400Heart rate 84 /minGuzman Bernal APRN-LINER ASSEMBLER Work Phone: [facility] [employer] Eartxl19-09-6888 08:41-0400 Respiratory rate20 /minGuzman Bernal APPEALS NURSE-LINER ASSEMBLER Work Phone: [facility] [employer] Viekrx07-86-7855 08:41-9607HcM9% (BldA) [Mass fraction]97 %Guzman Bernal APRN-LINER ASSEMBLER Work Phone: [employer] Ougllg72-25-4046 08:41-0400Systolic blood bpabrdjz537 mm[Hg]Guzman Bernal APPEALS NURSE-LINER ASSEMBLER Work Phone: [employer] Lvehdk00-16-0306 09:25-0400Blood Pressure LocationPatrick JP [facility]10-14-2022 09:25-0400Diastolic blood qakmaeyj85 mm[Hg]Domenic TRAMMELL [facility]10-14-2022 09:25-0400Heart cpit562 /minDomenic TRAMMELL [facility]10-14-2022 09:25-0400Systolic blood mm[Hg]Domenic TRAMMELL [facility]03-18-2022 18:45-0400Body qkcmvu752.8 cmPbetsey Jamison Other [employer] Other 03-18-2022 18:45-0400Body mass index (BMI) [Ratio] 43.04 kg/l4Cggqul Yaquelin Other [employer] Other 03-18-2022 18:45-0400Body lucoynawkth16.4 [degF]Sangeeta Yaquelin Other [employer] Other 03-18-2022 18:45-0400Body .08 kgSangeeta Benítezmond Other [employer] Other 03-18-2022 18:45-6382RmT3% (BldA) [Mass fraction]98 % Sangeeta Jamison Other [employer] Other 01-31-2022 11:15-0500Body cjrmdy196.8 cmSlibraeusebioshad NowakNga Other [employer] Other 01-31-2022 11:15-0500Body mass index (BMI) [Ratio] 43.04 kg/z1Tlbahorup Nga Other [employer] Other 01-31-2022 11:15-0500Body .3 [degF] Laya Sylvester Other [employer] Other 01-31-2022 11:15-0500Body drykvz669.08 kgStyessica Sylvester Other [employer] Other 01-31-2022 11:15-0500Respiratory rate18 /minSlibraernie Sylvester Other [employer] Other 01-31-2022 11:15-9417KrR3% (BldA) [Mass fraction]96 % Laya Sylvester Other [employer] Other 01-05-2022 10:45-0500Body jdruep469.8 cmThombaron Walsh Other [employer] Other 01-05-2022 10:45-0500Body mass index (BMI) [Ratio] 43.04 kg/k9Bmwjfn Milano Other [employer] Other 01-05-2022 10:45-0500Body phqbmczudji93 [degF]Angel Nico Other [employer] Other 01-05-2022 10:45-0500Body scilzq035.08 kgThomas Nico Other [employer] Other 01-05-2022 10:45-0500Respiratory rate16 /minThomas Nico Other [employer] Other 01-05-2022 10:45-8749BvN1% (BldA) [Mass fraction]97 % Angel Walsh Other [employer] Other Encounters Encounter DateEncounter TypeCare ProviderFacilityStart: 04-20-2024 End: 36-72-5709Tgvtiaqcq therapyAlexey Shah DO Work Phone: [facility] - Diabetes [facility] Nutrition EducationComment on above:Class 3 severe obesity due to excess calories without serious comorbidity with body mass index (BMI) of 45.0 to 49.9 in adult ([facility])Start: 04-20-2024 End: 30-80-9768ccjmjegtbsZJKFCNewark Hospitaltart: 04-03-2024 End: 07-36-6864Jwfwkl OnlyAlexey Campbell Furlong DO Work Phone: [facility] Internal Medicine - Family MedicineComment on above:Class 3 severe obesity due to excess calories without serious comorbidity with body mass index (BMI) of 45.0 to 49.9 in adult ([facility]) (Primary Dx)Start: 04-02-2024 End: 36-91-8612Cgvihzkvj encounterGuzman Bernal APRN-LINER ASSEMBLER Work Phone: [facility] - Diabetes Start: 03-29-2024 End: 02-30-0049Zmslzm outpatient visit 25 minutesGuzman Bernal APRN-LINER ASSEMBLER Work Phone: [facility] - Family MedicineComment on above:Class 3 severe obesity due to excess calories without serious comorbidity with body mass index (BMI) of 45.0 to 49.9 in adult ([facility]) (Primary Dx); Dandruff in adult; Seborrheic dermatitisStart: 03-29-2024 End: 51-00-2274rwwbnvhvavRQLZEF Chantale MOYUniversity [facility]als [facility] System Ambulatory PPGStart: 11-23-2023 End: 20-69-0267Qnrsbnabt encounterBriana L Dolores APPEALS NURSE-LINER ASSEMBLER Work Phone: [facility] - Family MedicineStart: 11-08-2023 End: 31-48-9157SmzgxdCcuhah L Dolores APPEALS NURSE-LINER ASSEMBLER Work Phone: [facility] Internal Medicine - Family MedicineComment on above:Mild intermittent reactive airway disease without complicationStart: 10-03-2023 End: 82-17-5251Wshtpv outpatient visit 15 [facility] Hospitalallan Anabelavera [facility] DO Work Phone: [facility] - Family MedicineComment on above:Lumbar radiculopathy, chronic (Primary Dx); Morbid obesity ([facility])Start: 10-03-2023 End: 11-07-9081vxodujxtcqGVRDTGDuncan Regional Hospital – Duncan PPGStart: 09-25-2023 End: 59-13-3768HcyyozUydbcn L Dolores APPEALS NURSE-LINER ASSEMBLER Work Phone: [facility] MedicineStart: 09-18-2023 End: 06-49-9376Fjfyfx OnlyBriana L Dolores APPEALS NURSE-LINER ASSEMBLER Work Phone: [facility] Medicine - Family MedicineComment on above:Class 3 severe obesity due to excess calories without serious comorbidity with body mass index (BMI) of 40.0 to 44.9 in adult ([facility])Start: 09-15-2023 End: 63-06-4161MnyohzZpukok G Furlong DO Work Phone: [facility] Internal Medicine - Family MedicineComment on above:Class 3 severe obesity due to excess calories without serious comorbidity with body mass index (BMI) of 40.0 to 44.9 in adult ([facility])Start: 08-15-2023 End: 02-24-8080kflyvrabsfHESLCE L RAUCHProBaylor Scott & [facility] Marble Fallstart: 08-12-2023 End: 11-02-5753Xpyhhl outpatient visit 15 minutesAlexey Littleavera [facility] DO Work Phone: [facility] Internal Medicine - Family MedicineComment on above:Morbid obesity ([facility]) (Primary Dx); Class 3 severe obesity due to excess calories without serious comorbidity with body mass index (BMI) of 40.0 to 44.9 in adult ([facility]); Thoracic myofascial strain, subsequent encounterStart: 08-12-2023 End: 46-78-3848hmwvvwucaaXXRZTUMary Lanning Memorial Hospital SystemStart: 08-04-2023 End: 19-95-5806Skasnfzeh encounterJess Mathews [facility] Internal Medicine - Family [facility] Annistontart: 07-25-2023 End: 07-83-0908avsamogmywUPLKRD L RAUCHProMedica Salinas Valley Health Medical Centertart: 07-15-2023 End: 28-99-4724Tkonff outpatient visit 15 minutesGuzman Bernal APPEALS NURSE-LINER ASSEMBLER Work Phone: [facility] Internal Medicine - Family MedicineComment on above:Class 3 severe obesity due to excess calories without serious comorbidity with body mass index (BMI) of 45.0 to 49.9 in adult ([facility]) (Primary Dx); Acute left-sided low back pain with left-sided sciatica; Acute allergic rhinitisStart: 07-15-2023 End: 11-14-1284vrhomkypsrRSJAGN L RAUCHSalem Regional Medical Centerca [facility] Ambulatory PPGStart: 06-15-2023 End: 00-10-9672jzcvkjwldvXNCDKJ Chantale RAUCHProGuernsey Memorial Hospitalca Sylvester HospitalStart: 31-11-0436Swpxmjcpy for general adult medical examination without abnormal findingsPaulding County Hospital HospitalStart: 29-19-0211Uztpcdfgn for general adult medical examination without abnormal findingsALVIN BERNAL [facility] Ambulatory PPGStart: 06-15-2023 End: 33-53-7461Dirhfhp encounter statusGuzman Bernal APPEALS NURSE-LINER ASSEMBLER Work Phone: [facility] Pardeetart: 06-15-2023 End: 76-79-3547Wejwauya preventive med est patient 18-39 yrsGuzman Bernal APPEALS NURSE-LINER ASSEMBLER Work Phone: [facility] Internal Medicine - Family MedicineComment on above:Wellness examination (Primary Dx); Current mild episode of major depressive disorder without prior episode ([facility]); Anxiety; Class 3 severe obesity due to excess calories without serious comorbidity with body mass index (BMI) of 45.0 to 49.9 in adult ([facility]); Acute bilateral low back pain with left-sided sciatica; Mild intermittent reactive airway disease without complicationStart: 06-15-2023 End: 18-08-4265ybdvlpbzyzKPYQUHMetropolitan Hospital Center Ambulatory PPGStart: 11-19-2022 End: 21-16-3167nnmcocpcjpPlridwa R WATERSFacility:EU BellevueStart: 11-05-2022 End: 52-16-1125jvcaeqamelQfufgqu WatersFacility:[facility] Hospitaltart: 11-05-2022 End: 16-66-9704nwyumpgzpqNhntuug R [facility] Work Phone: Start: 11-05-2022 End: 63-50-1308Jttbcekx ReferredMD Domenic Trammell Work Phone: [facility] [place] Work Phone: Start: 11-27-2021 End: 06-54-9164pxzcxwqtmdPzyqmcv R WATERSFacility:EU evueStart: 11-27-2021 End: 32-40-1209Zzngnmk encounter procedureDomenic TRAMMELL [facility] start: 11-05-2021 End: 71-87-2982qbvjgqtcpeSSDavis MAYNARDFacility:H6Kptdu: 05-05-2021 End: 60-91-7737veirotdoawWUJRS PARKERFacility:C0Oymzi: 05-01-2021 End: 86-03-4519doqnmqnlxnSoadtw Dymond Other [employer] Other Start: 18-01-8181Mzdnje outpatient visit 15 minutes Sangeeta YaquelinFPG Urgent Care ClydeStart: 03-16-2021 End: 34-54-0585ppsqevejuhNbdscqysq Nga Other [facility] [employer] Other Start: 89-97-7620Wpvzfe outpatient visit 15 minutes Laya NgaFPG Urgent Care ClydeStart: 02-18-2021 End: 41-91-9709mulawileqmGvrkxc Foraker Other [facility] [employer] Other Start: 31-74-1192Gcutvf outpatient visit 15 minutes Angel WalshFPG Urgent Care ClydeStart: 03-02-2017 End: 92-74-0290NnytgbrzmhMvf Dmitry WrighteeFacility:[facility] Procedures DateProcedureProcedure DetailPerforming ClinicianStart: 78-53-1059OQU REFERRAL TO DIABETIC EDUCATIONDenallan G Furlong DO Work Phone: Start: 83-60-6394Fxblbt-up visitFollow-upDDWAYNE Campbell FURLONGStart: 50-34-0583Spkvo depression screening assessmentAlexey Anabellong DO Work Phone: Start: 45-43-2098Sgzhc depression screening assessment Guzmanalvin Thompsonuch APPEALS NURSE-LINER ASSEMBLER Work Phone: Start: 63-77-9911Hhtgm depression screening assessment Guzman Thompsonuch APPEALS NURSE-LINER ASSEMBLER Work Phone: Start: 25-80-7998Vqcel depression screening assessment Guzmanalvin Thompsonuch APPEALS NURSE-LINER ASSEMBLER Work Phone: Start: 88-16-1125Rssyczgvdb intraoral with biopsy nos Fidelina RezaeeStart: 91-76-4163Pkefsgrz/destruction lesion pharynx any methodRod RezaeeStart: 94-14-2478Jatuwomrshqyy & adenoidectomy age 13/>Fidelina RezaeeStart: 97-58-0571Ehwndjldmq excision uvulaRod RezaeeTonsillectomyPatrick TRAMMELL Plan of Treatment DateCare ActivityDetailAuthorStart: 49-79-5205SFsQ,Tdap and Td Vaccines (8 - Td or Tdap)DTaP,Tdap and Td Vaccines (8 - Td or Tdap)[facility] SystemStart: 64-14-3110Wpxtw BMI ScreeningAdult BMI ScreeningCleveland Clinic Fairview Hospital SystemStart: 31-17-0203Xtvtr BMI ScreeningAdult BMI ScreeningCleveland Clinic [facility]view Hospital SystemStart: 20-80-1773Pxitbydxep ScreeningDepression ScreeningCleveland [facility] Health SystemStart: 18-99-4188Kmsrmxo ScreeningTobacco ScreeningSalem Regional Medical Centerca Health SystemStart: 28-82-8289Upeph BMI ScreeningAdult BMI ScreeningCleveland Clinic [facility] Health SystemStart: 89-28-8132Ohiwutnotu ScreeningDepression ScreeningSalem Regional Medical Centerca Health SystemStart: 11-56-9552Npowvjy ScreeningTobacco ScreeningSalem Regional Medical Centerca Health SystemStart: 56-18-4408Fhyhm BMI ScreeningAdult BMI ScreeningCleveland Clinic [facility] Health SystemStart: 80-27-3779Vnkcnhwgwl ScreeningDepression ScreeningSalem Regional Medical Centerca Health SystemStart: 43-38-6585Visdrbl ScreeningTobacco ScreeningSalem Regional Medical Centerca Health SystemStart: 23-93-3752Agtst BMI ScreeningAdult BMI ScreeningC[facility] Clinic [facility] SystemStart: 61-92-1887Oufhyprizv ScreeningDepression ScreeningC[facility] Clinic [facility] SystemStart: 75-26-7441Grccuim ScreeningTobacco ScreeningSalem Regional Medical Centerca [facility] SystemStart: 04-20-2024 End: 56-42-3374Fjhiuaznb gshxykb9404/20/2024 11:00 AM EST Support Visit [facility] [address] [place] [address] Alexey Shah, [address], [place] [address] Emilie Velázquez LD [facility] - Diabetes and Nutrition EducationStart: 04-10-2024 End: 35-63-4062Cewzwkl encounter oblzfazir67/25/2025 2:00 PM EST Office Visit [facility] [address] [place] [address] Alexey Shah, [address], [place] [address] [facility] Family MedicineStart: 12-09-2023 End: 69-82-5143Quqbvaq encounter mhvremwmd88/25/2024 8:40 AM EDT [facility] [address] [place] [address] Guzman Bernal, VIOLETA-LINER ASSEMBLER [address] [place] [address] [facility] Family MedicineStart: 97-85-7568OQNXP-19 Vaccine ()COVID-19 Vaccine ()[facility] SystemStart: 67-23-9808RCXOB-19 Vaccine ( season)COVID-19 Vaccine ( season)[facility] SystemStart: 57-57-6966Foschywdl vaccinationInfluenza VaccineProOhiohealth O'Bleness Hospital SystemStart: 10-03-2023 End: 41-61-6246CM Lumbar spine WO contrastMR lumbar spine without contrast Imaging Routine Lumbar radiculopathy, chronic Expected: 10/03/2023, Expires: 10/02/2024[facility] Work Phone: Comment on above:Expected: 10/03/2023, Expires: 10/02/2024Start: 10-03-2023 End: 10-26-2781Exdnrgu encounter cvjcezwjb80/19/2024 8:50 AM EDT Office Visit [facility] [address] [place] [address] Alexey Shah, DO [address], [place] [address] [facility] - [facility] MedicineStart: 08-15-2023 End: 35-58-2375Xyzdqcn encounter zkwnkqavp83/01/2024 8:00 AM EDT Appointment [facility] [place] [facility] [address] [place] [address] MwmCbiicx [place] - Total RehabStart: 08-12-2023 End: 59-73-4163Tkknabo encounter voixdpybh63/28/2024 11:30 AM EDT Office Visit [facility] [address] [place] [address] Alexey Sahh, DO [address], [place] [address] [facility] MedicineStart: 07-15-2023 End: 99-54-7462DL Lumbar spine 2 or 3 ViewsX-ray spine lumbar 2 or 3 views Imaging Routine Acute left-sided low back pain with left-sided sciatica Expected: 07/15/2023, Expires: 07/14/2024[facility] Work Phone: Comment on above:Expected: 07/15/2023, Expires: 07/14/2024Start: 07-15-2023 End: 80-94-7940Vzysobz encounter usyhwlfpo34/ 9:20 AM EDT Office Visit [facility] [address] [place] [address] Guzman Bernal, APPEALS NURSE-LINER ASSEMBLER [address] [place] [address] [facility] - Family MedicineStart: 06-15-2023 End: 41-62-9942Itdbh 1996 panel - Serum or PlasmaLipid profile Lab Routine Wellness examination Expected: 06/15/2023 (Approximate), Expires: 06/14/2024 [facility] Work Phone: Comment on above:Expected: 06/15/2023 (Approximate), Expires: 06/14/2024Start: 61-19-5562CVBYP-19 Vaccine ()COVID- 19 Vaccine ()[facility] Symplified SystemStart: 11-03-3504Njyih BMI Follow Up PlanAdult BMI Follow Up PlanCleveland Clinic [facility]view Hospital [facility] End: 15-87-6279Mrzexyphzbphk metabolic 2000 panel - Serum or PlasmaComprehensive metabolic panel Lab Routine Wellness examination 1 Occurrences starting 06/15/2023 until 06/14/2024[facility] SystemComment on above:1 Occurrences starting 06/15/2023 until 06/14/2024 End: 57-71-9590CEW with ReflexTSH with Reflex Lab Routine Anxiety 1 Occurrences starting 06/15/2023 until 06/14/2024[facility] SystemComment on above:1 Occurrences starting 06/15/2023 until 06/14/2024 Immunizations Immunization DateImmunizationNotesCare BevzsecxVlghugcj77-53-1486TFGV-VpR-4 (COVID-19) mRNA BNT-162b2 [employer] [facility]04-01-2021SARS-CoV-2 (COVID-19) mRNA BNT-162b2 [employer] [facility]12-21-2018tetanus toxoid, reduced diphtheria toxoid, and acellular pertussis vaccine, adsorbedPaSend Word Now [facility]07-10-2014tetanus toxoid, reduced diphtheria toxoid, and acellular pertussis vaccine, adsorbedPaSend Word Now [facility]01-28-2010meningococcal ACWY vaccine, unspecified formulationPaSend Word Now [facility]01-28-2010meningococcal polysaccharide (groups A, C, Y and W-135) diphtheria toxoid conjugate vaccine (MCV4P)Alexey FurloBladder Health Ventures DO Work Phone: [facility] Medical CenterRecombineWwgbkm73-27-9885tvhvxft toxoid, adsorbedDennis Furlong DO Work Phone: [facility] QC CorpOcvnqj48-24-7473ikjiwzybm virus vaccine, unspecified formulationPaSend Word Now [facility]10-17-2001influenza, seasonal, injectableDennis Furlong DO Work Phone: [facility] HospitalHostel RocketTpageu83-18-0297yehzxuy, mumps and rubella virus vaccinePatricVillij [facility]07-02-1998diphtheria, tetanus toxoids and acellular pertussis vaccine, unspecified formulationDennis Furlong DO Work Phone: [facility]07-02-1998DTaP, unspecified formulationFlameStower [facility]07-02-1998poliovirus vaccine, unspecified formulationDennis Furlong DO Work Phone: [facility] Symplified Amaagx42-16-7984veqxpcw toxoid, reduced diphtheria toxoid, and acellular pertussis vaccine, adsorbedDennis Furlong DO Work Phone: [facility] Medical CenterIoeucv23-71-6669bkwxpbbrw virus vaccinePatrick TRAMMELL [facility]04-14-1994diphtheria, tetanus toxoids and acellular pertussis vaccine, unspecified formulationDennis Furlong DO Work Phone: [facility]04-14-1994DTaP, unspecified formulationPaSavvyMoney, Inc.luis fernando TRAMMELL [facility]04-14-1994hepatitis B vaccine, pediatric or pediatric/adolescent dosage Domenic TRAMMELL [facility]04-14-1994poliovirus vaccine, unspecified formulationDennis Furlong DO Work Phone: [facility]04-14-1994tetanus toxoid, reduced diphtheria toxoid, and acellular pertussis vaccine, adsorbedDennis Furlong DO Work Phone: [facility] Medical CenterUkezkc81-09-6941wgpcdaqhqeg influenzae type b vaccine, conjugate unspecified formulationDennis Furlong DO Work Phone: [facility] Medical CenterZxyjgq69-32-7144zphchzbrw B vaccine, pediatric or pediatric/adolescent dosagePashazia TRAMMELL [facility]11-12-1993Hib, unspecified formulationPashazia TRAMMELL [facility]11-12-1993measles, mumps and rubella virus vaccinePatricluis fernando TRAMMELL [facility]04-28-1993hepatitis B vaccine, pediatric or pediatric/adolescent dosage Domenic TRAMMELL [facility]01-28-1993diphtheria, tetanus toxoids and acellular pertussis vaccine, unspecified formulationDennis Furlong DO Work Phone: [facility] Symplified Mpbaxe52-48-3359UPlE, unspecified formulationPatrick Speedshape [facility]01-28-1993haemophilus influenzae type b vaccine, conjugate unspecified formulationDennis Furlong DO Work Phone: [facility] Symplified Olycza12-99-9675Xot, unspecified formulationPatrick Speedshape [facility]01-28-1993tetanus toxoid, reduced diphtheria toxoid, and acellular pertussis vaccine, adsorbedDennis Furlong DO Work Phone: [facility] Symplified Wafaer72-56-6369scillxviau, tetanus toxoids and acellular pertussis vaccine, unspecified formulationDennis Furlong DO Work Phone: [facility] Symplified Hdmldg95-93-6682OYmW, unspecified formulationPatrick Speedshape [facility]12-18-1992haemophilus influenzae type b vaccine, conjugate unspecified formulationDennis Furlong DO Work Phone: [facility] Symplified Csblom91-20-2273Bwp, unspecified formulationPatrick Speedshape [facility]12-18-1992poliovirus vaccine, unspecified formulationDennis Furlong DO Work Phone: [facility] Symplified Rdbfim74-86-2610nnwtrzo toxoid, reduced diphtheria toxoid, and acellular pertussis vaccine, adsorbedDennis Furlong DO Work Phone: [facility] Symplified Akfzcl57-43-3254fzpwapilew, tetanus toxoids and acellular pertussis vaccine, unspecified formulationDennis Furlong DO Work Phone: [facility]10-21-1992DTaP, unspecified formulationPatrick Speedshape [facility]10-21-1992haemophilus influenzae type b vaccine, conjugate unspecified formulationDennis Furlong DO Work Phone: [facility]10-21-1992Hib, unspecified formulationPatrick TRAMMELL [facility]10-21-1992poliovirus vaccine, unspecified formulationDennis Furlong DO Work Phone: [facility]10-21-1992tetanus toxoid, reduced diphtheria toxoid, and acellular pertussis vaccine, adsorbedDennis Furlong DO Work Phone: [facility] Payers DatePayer CategoryPayerPolicy [id number] Other (unspecified)[employer] [id number] Health Insurance [facility] [employer] [id number] 2022-Present [phone] [address] [address] [place] [address] [id number] [id number] 2.840.1.533215.3.57[id number] 2.840.1.153798.3.57[id number] 2.840.1.838447.3.57[id number] 2.0.1.756233.3.57[id number] 2..1.845836.3.57[id number] 2.0.1.361793.3.57[id number] 2.0.1.206309.3.57[id number] 2..1.279306.3.57[id number] 2..1.487000.3.57[id number] 2..1.398597.3.57[id number] 2..1.952666.3.57[id number] 2.0.1.570389.3.57[id number] 2..1.545359.3.57[id number] 2.840.1.029867.3.579.[id number] 2.840.1.251677.3.579.2.531 Social History DateTypeDetailFacilityUnknown if ever smokedNossm [facility] [employer] Other Start: 10-03-2023 End: 54-33-4917Zxw [facility] Hospitaltart: 84-13-5953Plwpymv smoking statusNever smoked tobacco (finding)[facility] smoking statusNeverExec[facility] of [facility] Hospitaltart: 59-38-0020Ovi Assigned At [facility] Hospitaltart: 52-67-7869Pgjrqsy smoking status NHISEx-smokerUNC Health Pardeetart: 07-05-2012 End: 78-70-8694Hwnljis of tobacco useCurrent smokerUNC Health Pardeetart: 07-05-2012 End: 57-64-3938Kxbiwfv of tobacco useCigarette SmokerC[facility] Clinic [facility]view [facility] Start: 06-15-2023 End: 78-33-8618Yfkvxrsqjl smoked current (pack per day) - Juhwuuwo1DdgTpdg[address] [place], [place] [address]tart: 33-80-6877Ojpozlo use and exposureFormer smokeless tobacco userCleveland Clinic Fairview Hospital System End: 19-95-1138Kqffvia of tobacco useChews TobaccoUNC Health Pardeetart: 07-15-2023 End: 89-47-5748Ohoienodv beverage intakeEx-drinker (finding)[facility] Symplified SystemHas the Sagence, autoGraph, or water [employer] threatened to shut off services in your home in past 12MoNoProOhiohealth O'Bleness Hospital SystemAre you now , , , , never or living with a partner? ProMnoland hospital tuscal[facility] Health SystemHow often to you have a drink containing alcohol?Monthly or lessProSoutheast Health Medical Center Health SystemHow many standard drinks containing alcohol do you have on a typical day?1 or 2PIberia Medical Center Health SystemHow often do you have 6 or more drinks on 1 occasion?NeverProSoutheast Health Medical Center Health SystemHow hard is it for you to pay for the very basics like food, housing, medical care, and heatingNot very hardProMedica Health SystemDo you feel stress - tense, restless, nervous, or anxious, or unable to sleep at night because yourmind is troubled all the time - these days [OSQ]To some extentSalem Regional Medical CenterAura Systems SystemStart: 67-92-6592Vtr assigned at birthNot on fileSalem Regional Medical CenterAura Systems SystemStart: 74-25-4706MouZqik (finding)[facility] Functional Status SdilBhdiiaxrqaOswjwaEtqsjtlr05-07-1761Mmtoujjzmj StatusN/AExec[facility] Clinical Notes 02-18-2021 to 04-20-2024 Note Date & TouuPzgmPqckoaqw14-50-2394 History of Present illness Narrative* Emilie Velázquez, LD - 04/20/2024 11:00 AM EST OUTPATIENT NUTRITION CONSULTATION- ADULT Date: 04/20/24 Time in: 10:45 Time out: 12:00 Patient Sharad Carr Age () 33 y.o. (1990) Sex male Accompanied by alone Reason for Visit: Weight loss due to obesity Chief Complaint Patient presents with MNT - Individual Assessment: Height/Weight: Today's BMI Body mass index is 48.35 kg/m . BMI Category Obese class 3 (> or = 40.00) Height Height: 177.8 cm (5' 10 ) Weight Wt Readings from Last 3 Encounters: 04/20/24 (!) 152.9 kg (337 lb) 03/31/24 (!) 152.9 kg (337 lb) 10/03/23 (!) 142.5 kg (314 lb 3.2 oz) Lisle Body Weight Lisle body weight: 73 kg (160 lb 15 oz) Adjusted ideal body weight: 104.9 kg (231 lb 5.8 oz) Lab Results: POCT A1c No results found for: BAVWEVP5X A1c No results found for: HGBA1C C-Peptide No results found for: CPEPTIDE Kidney No results found for: ALBCREATRA Lab Results Component Value Date GLU 104 (H) 06/15/2023 K 4.1 06/15/2023 BUN 11 06/15/2023 CREATININE 0.92 06/15/2023 Lipid Panel Lab Results Component Value Date CHOL 180 06/15/2023 Lab Results Component Value Date HDL 38 (L) 06/15/2023 Lab Results Component Value Date LDLCALC 80 06/15/2023 Lab Results Component Value Date TRIG 310 (H) 06/15/2023 No results found for: CHOLHDL Hgb No results found for: HGB Nutrition/Diet Counseling: Prior Nutrition Counseling Prior nutrition counseling was not provided. Estimated Energy Needs 2180-1533 kcals daily Diet History Revealed Energy Intake: Excessive Total Fat Intake: Excessive Sodium Intake: Excessive Fiber Intake: Inadequate Carbohydrate Intake: Excessive Protein Intake: Inconsistent Food Recall Breakfast Meal:: skips Lunch Time:: 1399 Lunch Meal:: sub sand/chili Dinner Time:: 1999 Dinner Meal:: meat/pot What beverages do you consume and approxiate amount?: energy drinks/diet pop Diagnosis: Overweight/obesity Related to Excessive energy intake As evidenced by Weight gain Intervention: Nutrition Education: Patient was instructed on carbohydrate counting, healthy food selections, weight reduction, sourcesof fat, and sources of fiber, label reading, menu planning and importance of exercise Carbohydrate distribution provided to patient (if applicable): Breakfast Snack Lunch Snack Dinner Snack Carbohydrate 75 75 15 75 15 Total Kcal Recommended: 2454-3471 (weight loss) Monitoring & Evaluation: Goals Eat 3 meals per day, Use resources discussed/given to count carbs, Target 5 servings of fruits/vegetables per day, Avoid sugar sweetened beverages, Exercise for 150 minutes per week, Monitors portions, and Label reading Follow-Up Plan No return appointment scheduled. Department phone number provided for questions after session. Emilie Velázquez RD., LD. [facility] documented in this encounterUniversity Hospitals Ely[facility] Center02-17-2025 Miscellaneous Notes* Telephone Encounter - Marina Sung - 04/02/2024 12:09 PM EST ----- Message from SIVA Azul sent at 03/31/2024 8:22 AM EST ----- Please set up well for year * Telephone Encounter - Marina Sung - 04/02/2024 12:09 PM EST Sent mychart documented in this encounterUniversity Hospitals Elyria Medical Center02-17-2025 Telephone encounter Note* Telephone Encounter - Marina Sung - 04/02/2024 12:09 PM EST ----- Message from SIVA Azul sent at 03/31/2024 8:22 AM EST ----- Please set up well for year [facility]02-17-2025 Telephone encounter Note* Telephone Encounter - Marinarenny Sung - 04/02/2024 12:09 PM EST Sent mychart [facility]02-17-2025 Miscellaneous Notes* Telephone Encounter - Yolanda Underwood - 04/02/2024 7:14 AM EST We received a referral for education for Sharad Carr 1990. However per CMS Guidelinesthe services requested need to be ordered by an MD or DO. Please see pended order and have MD/DO sign if agreeable. Thank you [facility] * Telephone Encounter - SIVA Bruno - 04/02/2024 7:14 AM EST Did you print this for Dr. Campbell to sign? I'm not sure how he could co-sign electronically * Telephone Encounter - Marina Sung - 04/02/2024 7:14 AM EST I had him resend it under his name * Telephone Encounter - Yolanda Underwood - 04/02/2024 7:14 AM EST New order sent documented in this encounterUniversity Hospitals Elyria Medical Center02-17-2025 Telephone encounter Note* Telephone Encounter - Yolanda Underwood - 04/02/2024 7:14 AM EST We received a referral for education for Sharad Carr 1990. However per CMS Guidelinesthe services requested need to be ordered by an MD or DO. Please see pended order and have MD/DO sign if agreeable. Thank you [facility]02-17-2025 Telephone encounter Note* Telephone Encounter - SIVA Bruno - 04/02/2024 7:14 AM EST Did you print this for Dr. Campbell to sign? I'm not sure how he could co-sign electronically [facility]02-17-2025 Telephone encounter Note* Telephone Encounter - Marina Sung - 04/02/2024 7:14 AM EST I had him resend it under his name [facility]02-17-2025 Telephone encounter Note* Telephone Encounter - Yolanda Underwood - 04/02/2024 7:14 AM EST New order sent [facility]02-13-2025 History of Present illness Narrative* SIVA Bruno - 03/29/2024 10:00 AM EST [address] [place] [address] Patient: Sharad Carr Date of : 1990 Encounter Date: 03/29/2024 History of Present Illness: The patient is a 33 y.o. male, an established patient, and is here for No chief complaint on file. . HPI Video visit to discuss medically monitored weight loss or weight loss options. Pt has tried adipex in past and it helped initially, but unfortunately did not meet the weight loss goal a few months into the prescription and was stopped. Pt also developed palpitations a few months into adipex and hadto go to ER. He was found to have no cardiac problems in ER. Pt is not very active because he is so heavy, activity causes pain in hip. GLP1-Is are too expensive for pt and not covered by insurance. Pt also c/o dry, flaking and sometimes itching scalp and gandhi. Problem is not bad currently, but has been experiencing intermittently for several months. When he looks at his scalp in the area, his skin is red/inflamed. He has tried anti- dandruff shampoos and read the names off such as head and shoulders but none seem to work very well. Video Visit via Real-time Synchronous Audiovisual Provider Location: [facility] [address] [place] [address] Patient Location: Patient's home Video Visit Consent Statement: I discussed risks, benefits, and alternatives of a real-time synchronous audiovisual consultation with the patient (and any accompanying persons) including the risks that the patient's personal health details and medical records will be discussed over real-time, synchronous, interactive video/audio/telecommunication technology, the visit will not be recorded withoutthe express consent of both the provider and the patient, and that there are some limitations compared to zzik-fu-zjae evaluations. The patient consented to the presence of additional virtual and/or in-person participants. We elected to proceed. Problem List Items Addressed This Visit Digestive Class 3 severe obesity due to excess calories without serious comorbidity with body mass index (BMI) of 45.0 to 49.9 in adult ([facility]) - Primary Musculoskeletal and Integument Seborrheic dermatitis Other Visit Diagnoses Dandruff in adult Past Medical, Family, and Social History Update: The following portions of the patient's history were reviewed and updated as appropriate: allergies, current medications, past family history, past medical history, past social history, past surgicalhistory and problem list. Past Medical History: Diagnosis Date Allergic Asthma Past Surgical History: Procedure Laterality Date ADENOIDECTOMY LASIK Bilateral TONSILLECTOMY VASECTOMY Current Outpatient Medications Medication Sig Dispense Refill albuterol (PROVENTIL HFA;VENTOLIN HFA) 90 mcg/actuation inhaler Inhale 2 puffs every 6 (six) hours as needed for shortness of breath or wheezing. 18 g 1 baclofen (LIORESAL) 10 mg tablet Take 2 tablets (20 mg total) by mouth 3 (three) times a day as needed for muscle spasms. celecoxib (CeleBREX) 100 mg capsule Take 1 capsule (100 mg total) by mouth in the morning and 1 capsule (100 mg total) before bedtime. 60 capsule 1 fluticasone propionate (FLONASE) 50 mcg/actuation nasal spray Administer 1 spray into each nostril in the morning. 9.9 mL 2 gabapentin (NEURONTIN) 100 mg capsule Take 1 capsule (100 mg total) by mouth 3 (three) times a day.90 capsule 1 ketoconazole (NIZORAL) 2 % shampoo Apply 1 Application topically 2 (two) times a week. Apply to damp skin, lather, leave on 5 minutes, and rinse 120 mL 1 No current facility-administered medications for this visit. (All medications reviewed and updated by provider since last office visit or hospitalization) Allergies: Patient has no known allergies. Tobacco History: Social History Tobacco Use Smoking Status Former Current packs/day: 0.00 Average packs/day: 2.0 packs/day for 10.0 years (20.0 ttl pk-yrs) Types: Cigarettes Start date: 07/05/2012 Quit date: 07/05/2022 Years since quittin.7 Smokeless Tobacco Former Types: Chew Quit date: 07/05/2022 (If patient a smoker, smoking cessation counseling offered) Social History: Social History Substance and Sexual Activity Alcohol Use Not Currently Review of Systems: Review of Systems Constitutional: Positive for unexpected weight change (23 lbs weight gain since Sep). Negative for activity change and appetite change. HENT: Negative. Respiratory: Negative. Cardiovascular: Negative. Gastrointestinal: Negative. Musculoskeletal: Positive for arthralgias, gait problem and myalgias. Skin: Positive for rash. Neurological: Positive for numbness. Psychiatric/Behavioral: Negative. Physical Exam: There were no vitals taken for this visit. Physical Exam Constitutional: Comments: Pt appears without distress on video call. He tries to show me rash to scalp and gandhi but currently not bothering him. No flaking or redness visualized. Assessment and Plan: Diagnoses and all orders for this visit: Class 3 severe obesity due to excess calories without serious comorbidity with body mass index (BMI) of 45.0 to 49.9 in adult ([facility]) Dandruff in adult Seborrheic dermatitis Other orders - ketoconazole (NIZORAL) 2 % shampoo; Apply 1 Application topically 2 (two) times a week. Apply to damp skin, lather, leave on 5 minutes, and rinse Follow-up: Pt declines medically monitored weight loss for now as he had adverse side effects in past with adipex and GLP1-I too expensive. 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 Pt given instructions for using anti-fungal shampoo - he should use this to scalp and gandhi. If significant itching still occurring, we can add low potency steroid as well. May take several weeks of use to see improvement. Pt understands. It was recommended he f/u for well visit this year. [id number] 31 min. SIVA BRUNO APRN-CNP 03/31/24 0824 documented in this encounterUniversity [facility]als [facility]10-09-2024 Miscellaneous Notes* Telephone Encounter - Marina Sung - 11/23/2023 10:29 AM EDT Reschedule 12/08 appt * Telephone Encounter - Marina Sung - 11/23/2023 10:29 AM EDT LM on VM * Telephone Encounter - Marina Sung - 11/23/2023 10:29 AM EDT LM on VM * Telephone Encounter - Marina Sung - 11/23/2023 10:29 AM EDT LM on VM/ called 3 times sending letter documented in this encounterUniversity [facility]als [facility]10-09-2024 Telephone encounter Note* Telephone Encounter - Marina Sung - 11/23/2023 10:29 AM EDT Reschedule 12/08 appt [facility]10-09-[facility]24 Telephone encounter Note* Telephone Encounter - Marina Sung - 11/23/2023 10:29 AM EDT LM on VM [facility]10-09-2024 Telephone encounter Note* Telephone Encounter - Marina Sung - 11/23/2023 10:29 AM EDT LM on VM [facility]10-09-2024 Telephone encounter Note* Telephone Encounter - Marina Sung - 11/23/2023 10:29 AM EDT LM on VM/ called 3 times sending letter [facility]08-19-2024 History of Present illness Narrative* Alexey Shah, - 10/03/2023 8:50 AM EDT Images from the original note were not included. Subjective Patient ID: Sharad Carr is a 33 y.o. male. Sharad is a 33 y.o. male following up for his lower back pain. He has been trying to lose weight withlifestyle modifications and phentermine. With his exacerbated pain, its been difficult for him to exercise or complete tasks around his home. He has gained 2 lbs since his last visit. PT was helping him, but he is no longer participating. Stretching is not helping either. He believes that his current medications (baclofen, celecoxib) is not helping. When his lower back pain flares up, he describes it as sharp and a 7 or 8/10 (10 being the worst). The pain localizes to his left lower lumbar region. When this happens, he feels tinging radiating down his left thigh. PT referred him back to here for a possible MRI/steroid injection since PT thought his pain might involve his SI joint. He is also having trouble with sleeping (waking up early, no issues falling asleep). He reports not being overly exhausted, but is noticeably fatigued the last 3-4 weeks. He normally gets 7 hours of sleep, buthas been getting 5-6 hours of sleep currently with his exacerbated pain the past month. Follow-up This is a chronic problem. The current episode started more than 1 year ago. The problem has been unchanged. Associated symptoms include arthralgias, fatigue, myalgias, numbness and weakness. Pertinent negatives include no abdominal pain, chest pain, coughing, fever, headaches, nausea, rash or vomiting. The symptoms are aggravated by walking (exercise). He has tried NSAIDs and rest (PT, baclofen)for the symptoms. The treatment provided no relief. The following portions of the patient's history were reviewed and updated as appropriate: allergies, current medications, past family history, past medical history, past social history, past surgicalhistory, problem list, and medication reconciliation was completed including current medication andpost discharge medication. Review of Systems Constitutional: Positive for activity change and fatigue. Negative for fever. HENT: Negative for hearing loss, sinus pain and tinnitus. Eyes: Negative for photophobia and visual disturbance. Respiratory: Negative for apnea, cough, chest tightness and shortness of breath. Cardiovascular: Negative for chest pain and palpitations. Gastrointestinal: Negative for abdominal distention, abdominal pain, constipation, diarrhea, nauseaand vomiting. Endocrine: Negative for cold intolerance, heat intolerance and polyuria. Genitourinary: Negative for difficulty urinating, dysuria and urgency. Musculoskeletal: Positive for arthralgias, back pain, gait problem and myalgias. Limping from pain. Skin: Negative for color change and rash. Allergic/Immunologic: Negative. Neurological: Positive for weakness and numbness. Negative for dizziness, light- headedness and headaches. Hematological: Bruises/bleeds easily. Psychiatric/Behavioral: Negative. Objective Physical Exam Constitutional: General: He is not in acute distress. Appearance: Normal appearance. He is obese. HENT: Head: Normocephalic and atraumatic. Eyes: Extraocular Movements: Extraocular movements intact. Cardiovascular: Rate and Rhythm: Normal rate and regular rhythm. Pulses: Normal pulses. Heart sounds: Normal heart sounds. No murmur heard. No friction rub. No gallop. Pulmonary: Effort: Pulmonary effort is normal. No respiratory distress. Breath sounds: Normal breath sounds. Musculoskeletal: Cervical back: Normal range of motion. Lumbar back: Tenderness present. No deformity, lacerations or spasms. Negative right straight leg raise test and negative left straight leg raise test. Back: Right lower leg: No edema. Left lower leg: No edema. Neurological: Mental Status: He is alert and oriented to person, place, and time. Cranial Nerves: Cranial nerves 2-12 are intact. Motor: Weakness (extension left lower leg) present. No atrophy. Gait: Gait is intact. Deep Tendon Reflexes: Reflex Scores: Patellar reflexes are 1+ on the right side and 0 on the left side. Achilles reflexes are 1+ on the right side and 1+ on the left side. Comments: Able to walk on tiptoes and heels Psychiatric: Mood and Affect: Mood normal. Behavior: Behavior normal. Thought Content: Thought content normal. Judgment: Judgment normal. Assessment/Plan Sharad was seen today for follow-up. Diagnoses and all orders for this visit: Lumbar radiculopathy, chronic - gabapentin (NEURONTIN) 100 mg capsule; Take 1 capsule (100 mg total) by mouth 3 (three) times a day. - Cancel: MR lumbar spine without contrast; Future - Ambulatory referral to Pain Management (Non-[facility]); Future - MR lumbar spine without contrast; Future Patient continues with left lower back pain radiating into his thigh. He is failed physical therapyand conservative measures. The nurse practitioner told him to increase the baclofen to 2 tablets 3 times a day so he is going to try that. Will stay on the Celebrex for now and we will add [id number] mg 3 times a day. If it makes him tired during the day then he can take the dose at bedtime. Wewill refer to pain management. We will check an MRI due to his radicular symptoms and persistent problems despite conservative therapy. Morbid obesity (CMS-HCC) Patient has been taking phentermine for 3 months. He did not lose the requisite 5% of his total body weight so he can not continue. He understands that. Part of his lack of success is that he is unable to do any vigorous aerobic exercise. We did discuss other exercise options such as swimming and elliptical bike. We can revisit this issue in the future I will see him back on an as needed basis for his back. We will relay the results of the MRI to [facility] or [facility]. documented in this encounterUniversity Hospitals [facility]06-28-2024 History of Present illness Narrative* Alexey Shah DO - 08/12/2023 11:30 AM EDT Images from the original note were not included. Subjective Patient ID: Sharad Cox Lilly is a 32 y.o. male. Sharad presents today for a couple problems. He is taking phentermine and not having any side effects. He unfortunately lost 2 lb but part of it was due to he has had a flare-up of his back pain and not able to exercise as much as he was doing. He did go to the chiropractor and then it got so bad he had to go to the emergency room. That was couple days ago. He was given Valium that actually took pain away 100%. It has come back some but not like it was. He has point tenderness on his left flank. He had a CT scan but they did not find anything. He had a similar problem years ago with his previous PCP. He felt a pop in his back thought he would slipped disc. He had pain down the legs. He took amuscle relaxer without much benefit. It did get better on its own after about 3 months. He does nothave any bowel or bladder symptoms. The following portions of the patient's history were reviewed and updated as appropriate: allergies, current medications, past family history, past medical history, past social history, past surgicalhistory, problem list, and medication reconciliation was completed including current medication andpost discharge medication. Review of Systems Constitutional: Negative. Respiratory: Negative. Cardiovascular: Negative. Gastrointestinal: Negative. Genitourinary: Negative. Musculoskeletal: Positive for back pain. Neurological: Negative. Psychiatric/Behavioral: Negative. Objective Physical Exam Constitutional: General: He is not in acute distress. Appearance: He is morbidly obese. HENT: Head: Normocephalic. Cardiovascular: Rate and Rhythm: Normal rate and regular rhythm. Pulses: Normal pulses. Pulmonary: Effort: Pulmonary effort is normal. Breath sounds: Normal breath sounds. Musculoskeletal: Cervical back: Neck supple. Thoracic back: Spasms and tenderness present. No swelling, deformity or lacerations. Back: Lymphadenopathy: Cervical: No cervical adenopathy. Skin: General: Skin is warm and dry. Neurological: General: No focal deficit present. Mental Status: He is alert and oriented to person, place, and time. Cranial Nerves: Cranial nerves 2-12 are intact. Gait: Gait is intact. Gait normal. Psychiatric: Attention and Perception: Attention normal. Mood and Affect: Mood and affect normal. Speech: Speech normal. Behavior: Behavior normal. Behavior is cooperative. Thought Content: Thought content normal. Cognition and Memory: Cognition normal. Judgment: Judgment normal. Assessment/Plan Sharad was seen today for weight check and omt. Diagnoses and all orders for this visit: Morbid obesity ([facility]) He is morbidly obese. He would benefit from weight loss. He only lost 2 lb since last visit but haslost 13 lb overall. He needs to lose 16 0.25 lb to continue phentermine. Diet exercise and weight loss discussed. Class 3 severe obesity due to excess calories without serious comorbidity with body mass index (BMI) of 40.0 to 44.9 in adult ([facility]) - phentermine (ADIPEX-P) 37.5 mg tablet; Take 1 tablet (37.5 mg total) by mouth every morning before breakfast. As above. The OARRS/MAPPS database was reviewed today and found to be appropriate. No indication of medication diversion, or non compliance. Thoracic myofascial strain, subsequent encounter Pain is better following Valium. He can use to baclofen 10 mg tablets at a time if he needs it. He did have chiropractic treatment done without much improvement. Given the location I suspect it is more muscular and I doubt an osteopathic adjustment would help. 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 DEBORAH Campbell as he f/u with you next week [facility]06-20-2024 Telephone encounter Note* Telephone Encounter - Jess Mathews CMA - 08/04/2023 12:13 PM EDT LM to Cb [facility]06-20-2024 Telephone encounter Note* Telephone Encounter - Jess Mathews CMA - 08/04/2023 12:13 PM EDT LM to CB [facility]06-20-2024 Telephone encounter Note* Telephone Encounter - Jess Mathews CMA - 08/04/2023 12:13 PM EDT LM to CB [facility]05-31-2024 History of Present illness Narrative* SIVA Bruno - 07/15/2023 9:20 AM EDT [address] [facility] [id number] Patient: Sharad Cavazos-Vinny Date of : 1990 Encounter Date: 07/15/2023 History of Present Illness: The patient is a 32 y.o. male, an established patient, and is here for Chief Complaint Patient presents with Weight Check . HPI Patient is here for a weight check on month 2 of 3 of Adipex. He has had a 12 lb weight loss in thelast 30 days by making healthier food choices, cutting portions and trying to be more active on a daily basis. He unfortunately has not been as active as he would like because his back pain. He has no adverse side effects to the Adipex other than some mild nausea when he forgot to eat a meal. The steroid course did help with his right-sided back pain but now he is having some left-sided back pain that is radiating to the lateral side of his left leg and causing some numbness as well. The Flexeril and 800 ibuprofen has not been helping well. The pain happens when he gets up and walks around. He feels like if he would just get his back cracked he would feel better. He has not gone to the chiropractor yet though. Patient also has some allergies that have been acting up with some head congestion and nasal drainage. Problem List Items Addressed This Visit None Visit Diagnoses Class 3 severe obesity due to excess calories without serious comorbidity with body mass index (BMI) of 45.0 to 49.9 in adult ([facility]) - Primary Relevant Medications phentermine (ADIPEX-P) 37.5 mg tablet Acute left-sided low back pain with left-sided sciatica Relevant Orders X-ray spine lumbar 2 or 3 views [facility] [place], [place] Acute allergic rhinitis Relevant Medications celecoxib (CeleBREX) 100 mg capsule Past Medical, Family, and Social History Update: The following portions of the patient's history were reviewed and updated as appropriate: allergies, current medications, past family history, past medical history, past social history, past surgicalhistory and problem list. Past Medical History: Diagnosis Date Allergic Asthma Past Surgical History: Procedure Laterality Date ADENOIDECTOMY LASIK Bilateral TONSILLECTOMY VASECTOMY Current Outpatient Medications Medication Sig Dispense Refill albuterol (PROVENTIL HFA;VENTOLIN HFA) 90 mcg/actuation inhaler Inhale 2 puffs every 6 (six) hours as needed for shortness of breath or wheezing. 18 g 1 fluticasone propionate (FLONASE) 50 mcg/actuation nasal spray Administer 1 spray into each nostril in the morning. 9.9 mL 2 baclofen (LIORESAL) 10 mg tablet Take 1 tablet (10 mg total) by mouth 3 (three) times a day. 90 tablet 1 celecoxib (CeleBREX) 100 mg capsule Take 1 capsule (100 mg total) by mouth in the morning and 1 capsule (100 mg total) before bedtime. 60 capsule 1 phentermine (ADIPEX-P) 37.5 mg tablet Take 1 tablet (37.5 mg total) by mouth every morning before breakfast. 30 tablet 0 No current facility-administered medications for this visit. (All medications reviewed and updated by provider since last office visit or hospitalization) Allergies: Patient has no known allergies. Tobacco History: Social History Tobacco Use Smoking Status Former Current packs/day: 0.00 Average packs/day: 2.0 packs/day for 10.0 years (20.0 ttl pk-yrs) Types: Cigarettes Start date: 07/05/2012 Quit date: 07/05/2022 Years since quittin.0 Smokeless Tobacco Former Types: Chew Quit date: 07/05/2022 (If patient a smoker, smoking cessation counseling offered) Social History: Social History Substance and Sexual Activity Alcohol Use Not Currently Review of Systems: Review of Systems Constitutional: Negative for chills, fever and unexpected weight change. 12 lb weight loss in 30 days HENT: Positive for congestion, rhinorrhea and sinus pressure. Negative for ear pain and sore throat. Eyes: Negative for pain and visual disturbance. Respiratory: Negative for cough and shortness of breath. Cardiovascular: Negative for chest pain and palpitations. Gastrointestinal: Negative for abdominal pain and vomiting. Genitourinary: Negative for dysuria and hematuria. Musculoskeletal: Positive for back pain, gait problem and myalgias. Negative for arthralgias. Skin: Negative for color change and rash. Allergic/Immunologic: Negative for environmental allergies. Neurological: Negative for seizures and syncope. Psychiatric/Behavioral: Positive for agitation and dysphoric mood. Negative for behavioral problems, decreased concentration, self-injury, sleep disturbance and suicidal ideas. The patient is not nervous/anxious. All other systems reviewed and are negative. Physical Exam: BP 110/80 (BP Site: Left Arm, BP Postition: Sitting) Pulse 95 Temp 36.7 C (98 F) (Oral) Resp 18 Ht 177.8 cm (5' 10 ) Wt (!) 142.2 kg (313 lb 9.6 oz) SpO2 97% BMI 45.00 kg/m Physical Exam Vitals reviewed. Constitutional: Appearance: Normal appearance. He is obese. HENT: Head: Normocephalic and atraumatic. Right Ear: Hearing, ear canal and external ear normal. A middle ear effusion is present. Left Ear: Hearing, ear canal and external ear normal. A middle ear effusion is present. Nose: Nose normal. Mouth/Throat: Mouth: Mucous membranes are moist. Eyes: Pupils: Pupils are equal, round, and reactive to light. Neck: Thyroid: No thyroid mass, thyromegaly or thyroid tenderness. Cardiovascular: Rate and Rhythm: Normal rate and regular rhythm. Heart sounds: Normal heart sounds. Pulmonary: Effort: Pulmonary effort is normal. Breath sounds: Normal breath sounds. Abdominal: General: Bowel sounds are normal. Palpations: Abdomen is soft. Tenderness: There is no abdominal tenderness. Comments: Obese Musculoskeletal: Lumbar back: Tenderness and bony tenderness (L5-S1 left transverse) present. No swelling or deformity. Normal range of motion. Right lower leg: No edema. Left lower leg: No edema. Lymphadenopathy: Cervical: No cervical adenopathy. Skin: General: Skin is warm. Capillary Refill: Capillary refill takes less than 2 seconds. Neurological: General: No focal deficit present. Mental Status: He is alert and oriented to person, place, and time. Sensory: Sensation is intact. Motor: Motor function is intact. No weakness. Gait: Gait normal. Psychiatric: Mood and Affect: Mood normal. Behavior: Behavior normal. Thought Content: Thought content normal. Judgment: Judgment normal. Assessment and Plan: Sharad was seen today for weight check. Diagnoses and all orders for this visit: Class 3 severe obesity due to excess calories without serious comorbidity with body mass index (BMI) of 45.0 to 49.9 in adult ([facility]) - phentermine (ADIPEX-P) 37.5 mg tablet; Take 1 tablet (37.5 mg total) by mouth every morning before breakfast. Acute left-sided low back pain with left-sided sciatica - X-ray spine lumbar 2 or 3 views; Future - [facility] [place], [place]; Future Acute allergic rhinitis Other orders - baclofen (LIORESAL) 10 mg tablet; Take 1 tablet (10 mg total) by mouth 3 (three) times a day. - celecoxib (CeleBREX) 100 mg capsule; Take 1 capsule (100 mg total) by mouth in the morning and 1 capsule (100 mg total) before bedtime. Follow-up: We will continue month 2 of 3 on the Adipex as he does need more weight loss to prevent chronic conditions such as diabetes and hypertension. He should focus on his diet and getting as much exercise as he can tolerate with his back pain. Will obtain x-ray of lumbar spine and start physical therapy for low back pain. Will switch his NSAID to Celebrex and switch his muscle relaxant to baclofen. Patient should not drive after taking baclofen until he notes how it will affect him as this can cause sedation. He may continue to use Tylenol intermittently and add lidocaine patches. Patient may use Flonase for his middle ear effusion and antihistamine, he may get these [id number]. Patient will follow-up with Dr. Shah in 30 days for Adipex recheck and OMT. The OARRS/MAPPS database was reviewed today and found to be appropriate. No indication of medication diversion, or non compliance. SIVA BRUNO APRN-CNP 07/15/23 1228 documented in this encounter[facility] History of Present illness Narrative* SIVA Bruno - 06/15/2023 8:40 AM EDT [address] [place] [address] Patient: Sharad Carr Date of : 1990 Encounter Date: 06/15/2023 History of Present Illness: The patient is a 32 y.o. male, an established patient, and is here for Chief Complaint Patient presents with Back Pain 1month. Annual Exam . HPI Patient is here for his annual wellness exam. 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 He did go to the chiropractor at that time but the chiropractor would not adjust him until he was seen by a PCP. He has been doing at home stretches and using Tylenol and ibuprofen which helps a little. He feels like the pain is worse because he has gained about 40 lb in the last 1 year. Patient had adverse side effects to Wellbutrin so he stopped that and he never started the Lexapro but he feels his mental health has been under pretty good control. He has not had as much trouble sleeping since his last appointment in December. He would like to hold off on starting the Lexapro at this time. Patient in a monogamous relationship with , declines STI screening today. Problem List Items Addressed This Visit Respiratory Reactive airway disease without complication Relevant Medications albuterol (PROVENTIL HFA;VENTOLIN HFA) 90 mcg/actuation inhaler Other Current mild episode of major depressive disorder without prior episode ([facility]) Relevant Medications phentermine (ADIPEX-P) 37.5 mg tablet Anxiety Relevant Orders TSH with Reflex RESOLVED: Wellness examination - Primary Relevant Orders Lipid profile Comprehensive metabolic panel Other Visit Diagnoses Class 3 severe obesity due to excess calories without serious comorbidity with body mass index (BMI) of 45.0 to 49.9 in adult ([facility]) Relevant Medications phentermine (ADIPEX-P) 37.5 mg tablet Acute bilateral low back pain with left-sided sciatica Past Medical, Family, and Social History Update: The following portions of the patient's history were reviewed and updated as appropriate: allergies, current medications, past family history, past medical history, past social history, past surgicalhistory and problem list. Past Medical History: Diagnosis Date Allergic Asthma Past Surgical History: Procedure Laterality Date ADENOIDECTOMY LASIK Bilateral TONSILLECTOMY VASECTOMY Current Outpatient Medications Medication Sig Dispense Refill fluticasone propionate (FLONASE) 50 mcg/actuation nasal spray Administer 1 spray into each nostril in the morning. 9.9 mL 2 albuterol (PROVENTIL HFA;VENTOLIN HFA) 90 mcg/actuation inhaler Inhale 2 puffs every 6 (six) hours as needed for shortness of breath or wheezing. 18 g 1 cyclobenzaprine (FLEXERIL) 10 mg tablet Take 1 tablet (10 mg total) by mouth daily as needed for muscle spasms. 30 tablet 1 ibuprofen (MOTRIN) 800 mg tablet Take 1 tablet (800 mg total) by mouth every 6 (six) hours as needed for pain. 30 tablet 0 phentermine (ADIPEX-P) 37.5 mg tablet Take 1 tablet (37.5 mg total) by mouth every morning before breakfast. 30 tablet 0 predniSONE (DELTASONE) 20 mg tablet Take 1 tablet (20 mg total) by mouth in the morning and 1 tablet (20 mg total) before bedtime. Do all this for 5 days. 10 tablet 0 No current facility-administered medications for this visit. (All medications reviewed and updated by provider since last office visit or hospitalization) Allergies: Patient has no known allergies. Tobacco History: Social History Tobacco Use Smoking Status Former Current packs/day: 0.00 Average packs/day: 2.0 packs/day for 10.0 years (20.0 ttl pk-yrs) Types: Cigarettes Start date: 07/05/2012 Quit date: 07/05/2022 Years since quittin.9 Smokeless Tobacco Former Types: Chew Quit date: 07/05/2022 (If patient a smoker, smoking cessation counseling offered) Social History: Social History Substance and Sexual Activity Alcohol Use Not Currently Review of Systems: Review of Systems Constitutional: Positive for unexpected weight change (3 lb weight gain since last appt, 40 lb weight gain according to pt in last 1 year). Negative for chills and fever. HENT: Negative for ear pain and sore throat. Eyes: Negative for pain and visual disturbance. Respiratory: Negative for cough and shortness of breath. Cardiovascular: Negative for chest pain and palpitations. Gastrointestinal: Negative for abdominal pain and vomiting. Genitourinary: Negative for dysuria and hematuria. Musculoskeletal: Positive for back pain, gait problem and myalgias. Negative for arthralgias. Skin: Negative for color change and rash. Allergic/Immunologic: Negative for environmental allergies. Neurological: Negative for seizures and syncope. Psychiatric/Behavioral: Positive for agitation and dysphoric mood. Negative for behavioral problems, decreased concentration, self-injury, sleep disturbance and suicidal ideas. The patient is not nervous/anxious. All other systems reviewed and are negative. Physical Exam: BP 120/70 (BP Site: Left Arm, BP Postition: Sitting) Pulse 84 Temp 36.8 C (98.2 F) (Oral) Resp 20 Ht 177.8 cm (5' 10 ) Wt (!) 147.5 kg (325 lb 3.2 oz) SpO2 97% BMI 46.66 kg/m Physical Exam Vitals reviewed. Constitutional: Appearance: Normal appearance. He is obese. HENT: Head: Normocephalic and atraumatic. Right Ear: Hearing, tympanic membrane, ear canal and external ear normal. Left Ear: Hearing, tympanic membrane, ear canal and external ear normal. Nose: Nose normal. Mouth/Throat: Mouth: Mucous membranes are moist. Eyes: Pupils: Pupils are equal, round, and reactive to light. Neck: Thyroid: No thyroid mass, thyromegaly or thyroid tenderness. Cardiovascular: Rate and Rhythm: Normal rate and regular rhythm. Heart sounds: Normal heart sounds. Pulmonary: Effort: Pulmonary effort is normal. Breath sounds: Normal breath sounds. Abdominal: General: Bowel sounds are normal. Palpations: Abdomen is soft. Tenderness: There is no abdominal tenderness. Comments: Obese Musculoskeletal: Thoracic back: Tenderness (right lower thoracic/lower ribs) present. Lumbar back: Tenderness and bony tenderness (L5-S1) present. No swelling or deformity. Normal rangeof motion. Negative right straight leg raise test and negative left straight leg raise test. Right lower leg: No edema. Left lower leg: No edema. Lymphadenopathy: Cervical: No cervical adenopathy. Skin: General: Skin is warm. Capillary Refill: Capillary refill takes less than 2 seconds. Neurological: General: No focal deficit present. Mental Status: He is alert and oriented to person, place, and time. Sensory: Sensation is intact. Motor: Motor function is intact. No weakness. Gait: Gait normal. Deep Tendon Reflexes: Reflex Scores: Patellar reflexes are 2+ on the right side and 1+ on the left side. Achilles reflexes are 2+ on the right side and 2+ on the left side. Psychiatric: Mood and Affect: Mood normal. Behavior: Behavior normal. Thought Content: Thought content normal. Judgment: Judgment normal. Assessment and Plan: Sharad was seen today for back pain and annual exam. Diagnoses and all orders for this visit: Wellness examination - Lipid profile; Future - Comprehensive metabolic panel; Future Current mild episode of major depressive disorder without prior episode ([facility]) Anxiety - TSH with Reflex; Future Class 3 severe obesity due to excess calories without serious comorbidity with body mass index (BMI) of 45.0 to 49.9 in adult ([facility]) - phentermine (ADIPEX-P) 37.5 mg tablet; Take 1 tablet (37.5 mg total) by mouth every morning before breakfast. Acute bilateral low back pain with left-sided sciatica Mild intermittent reactive airway disease without complication - albuterol (PROVENTIL HFA;VENTOLIN HFA) 90 mcg/actuation inhaler; Inhale 2 puffs every 6 (six) hours as needed for shortness of breath or wheezing. Other orders - predniSONE (DELTASONE) 20 mg tablet; Take 1 tablet (20 mg total) by mouth in the morning and 1 tablet (20 mg total) before bedtime. Do all this for 5 days. - ibuprofen (MOTRIN) 800 mg tablet; Take 1 tablet (800 mg total) by mouth every 6 (six) hours as needed for pain. - cyclobenzaprine (FLEXERIL) 10 mg tablet; Take 1 tablet (10 mg total) by mouth daily as needed formuscle spasms. Follow-up: Health maintenance and immunizations discussed and recommendations made today. Patient is up-to-date on his Tdap. Patient does not want anything for his depression at this time as he feels if he would lose weight his depression will improve. He is to start his 1st month on Adipex for medically monitored weight loss and it was recommended that he start a regimented eating program. Goal BMI of less than 25% discussed with patient and he understands he will follow up in the office every 1 month. He will check his thyroid function tests make sure this is not impairing his weight loss. Start conservative management for his lower back pain with prednisone burst with food then he may take the Motrin as needed with food and muscle relaxant and start home exercise plan and stretches. He declined x-ray today. Follow-up in 1 month to recheck above issues. The OARRS/MAPPS database was reviewed today and found to be appropriate. No indication of medication diversion, or non compliance. SIVA BRUNO APRN-CNP 06/15/23 [id number] documented in this encounterUniversity [facility]als [facility]10-14-2022 NoteChief Complaint Referral HPI Staff Referral per Dr. Rodriguez Maynard DO due to vasectomy consult. Pt information pamphlet was given. Dysuria: denies pain or burning Incomplete bladder emptying: denies Hematuria: denies visible blood Frequency: denies Urgency: denies Nocturia: mild intermittent once a night Stream: denies hesitancy, denies weak stream Leaking: denies Post void dripping: denies Wearing pads/ Depends: denies Urge incontinence: denies Stress incontinence: denies Incontinence without Sensory Awareness: denies Abdominal pain: denies Flank pain: denies Sexual complaints: denies History of Present Illness Tests reviewed: reviewed UA I have reviewed the previous health record information and history for this patient from Dr. Trammell. I have reviewed and verified the staff HPI to be accurate for this encounter. There have been no associated fever, chills, flank pain, or blood in the urine. Denies any urinary infections since last encounter. Review of Systems PHQ Score Initial Depression Screen Score: 0 ROS - Provider Constitutional: denies weight loss, denies hot flashes. Eyes: denies eye problems. Gastrointestinal: denies nausea, denies vomiting. Cardiovascular: denies chest pain or angina. Integumentary: no dryness Musculoskeletal: denies musculoskeletal symptoms. ENMT: denies otolaryngeal symptoms. Respiratory: no shortness of breath. Heme/Lymph: denies easy bleeding tendency, denies easy bruising tendency. Psychiatric: no confusion, no anxiety. Genitourinary: denies dysuria, denies hematuria, denies discharge, denies urinary frequency, deniesurinary hesitancy, denies nocturia, denies incontinence, denies genital sores, denies decreased libido, and denies erectile dysfunction. Physical Exam Vitals & Measurements HR: 100(Peripheral) BP: 150/94 HT: 70 in HT: 178 cm WT: 140.7 kg WT: 309.54 lb BMI: 44.41 General Appearance: alert, no distress, well nourished, well developed male. Head: normocephalic . Eyes: normal orbit and globe. ENMT: normal examination of external ears. Chest: Lungs CTA, respirations non labored. Cardiovascular: regular rate and rhythm. Abdomen: soft, non distended, no tenderness, no mass or organomegaly, no hernia. Genitourinary: normal scrotum, normal testes, normal urethra, normal epididymis, normal vas deferens/spermatic cord. Flank Pain: none. Bladder: nonpalpable. Penis: normal shaft, normal glans. Lymph Nodes: unremarkable palpation of the cervical area. Skin: warm, dry, no bruising. Psychiatric: cooperative, affect appropriate for age, normal judgement, euthymic mood. Assessment/Plan 1. Encounter for vasectomy (Z30.2: Encounter for sterilization) Referred by Dr. Maynard for vasectomy. UA today is negative. Pt has 5 children and desires sterilization. Will schedule Vasectomy. The procedural risks, benefits, details, and treatment alternatives of sterilization have been discussed with the patient today. He understands this procedure is considered permanent, even though vasectomy reversals can be performed. There is no guarantee of successful reversal resulting in , however. Risks discussed include bleeding, infection, failure with in about 1:2500, post-vasectomy syndrome (chronic pain in the testicle or scrotum), possible association with prostate cancer development in the future, and erection problems, among others. Despite these risks, he wishes to proceed. He also understands that he is not considered sterile until a negative semen sample has been received after about 2-3 months after the vasectomy. Full informed consent has been obtained. Will order Local anesthesia. Follow-up With When Contact Information JP MCQEUEN, Domenic Hernandez, URL [facility] [address], [place] [phone] Additional Instructions: schedule vas Patient Education Vasectomy, Care After Stefanie Clemons, personally scribed for Dr. Trammell on 11/27/2021 10:07:38. . Documentation recorded by the michelleibStefanie kimble, accurately reflects the services(s) I performed and decisions made by me. Authenticated by Dr. Trammell on 11/27/2021 10:08:28. Problem List/Past Medical History Ongoing Encounter for vasectomy Historical No qualifying data Procedure/Surgical History Tonsillectomy. Medications busPIRone 10 mg Tab Allergies No Known Medication Allergies Social History Tobacco Never (less than 100 in lifetime) Tobacco Use:. Never Smokeless Tobacco Use:., 11/27/2021 Family History Family history is unknown Immunizations Vaccine Date Status SARS-CoV-2 (COVID-19) mRNA BNT-162b2 vax 06/05/2020 Recorded SARS-CoV-2 (COVID-19) mRNA BNT-162b2 vax 05/15/2020 Recorded diphtheria/pertussis, acel/tetanus adult 02/03/2018 Recorded diphtheria/pertussis, acel/tetanus adult 08/23/2013 Recorded meningococcal conjugate vaccine 03/13/2009 Recorded influe (more content not included)...[facility]:Result Comment: Electronically Signed By: Domenic TRAMMELL MD\.br\Date and Time Signed: 11/27/21 10:08 EDT\.br\Electronically Co-Signed By: Stefanie Echeverria\.br\Date and Time Co-Signed: 11/27/21 10:07 [id number] Hospital Discharge instructions Patient Education 11/26/2021 10:17:51 Vasectomy, Care After Vasectomy, Care After This sheet gives you information about how to care for yourself after your procedure. Your health care provider may also give you more specific instructions. If you have problems or questions, contact your health care provider. What can I expect after the procedure? After your procedure, it is common to have: Mild pain, swelling, redness, or discomfort in your scrotum. Some blood coming from your incisions or puncture sites for one or two days. Blood in your semen. Follow these instructions at home: Medicines Take pdvy-kid-[id number] and prescription medicines only as told by your health care provider. Avoid taking NSAIDs such as aspirin and ibuprofen, because these medicines can make bleeding worse. Activity For the first 2 days after surgery, avoid physical activity and exercise that require a lot of energy. Ask your health care provider what activities are safe for you. Do not participate in sports or perform heavy physical labor until your pain has improved, or untilyour health care provider says it is okay. Do not ejaculate for at least 1 week after the procedure, or as long as directed. You may resume sexual activity 7 10 days after your procedure, or when your health care provider approves. Use a different method of control (contraception) until you have had test results thatconfirm that there is no sperm in your semen. Scrotal support Use scrotal support, such as a jock strap or underwear with a supportive pouch, as needed for one week after your procedure. If you feel discomfort in your scrotum, you may remove the scrotal support to see if the discomfortis relieved. Sometimes scrotal support can press on the scrotum and cause or worsen discomfort. If your skin gets irritated, you may add some germ-free (sterile), fluffed bandages or a clean washcloth to the scrotal support. General instructions Put ice on the injured area: ?Put ice in a plastic bag. ?Place a towel between your skin and the bag. ?Leave the ice on for 20 minutes, 2 3 times a day. Check your incisions or puncture sites every day for signs of infection. Check for: ?Redness, swelling, or pain. ?Fluid or blood. ?Warmth. ?Pus or a bad smell. Leave stitches (sutures) in place. The sutures will dissolve on their own and do not need to be removed. Keep all follow-up visits as told by your health care provider. This is important because you will need a test to confirm that there is no sperm in your semen. Multiple ejaculations are needed to clear out sperm that were beyond the vasectomy site. You will need one test result showing that there is no sperm in your semen before you can resume unprotected sex. This may take 2 4 months after your procedure. Do not drive for 24 hours if you were given a sedative to help you relax. Contact a health care provider if: You have redness, swelling, or more pain around your incision or puncture site, or in your scrotum area in general. You have bleeding from your incision or puncture site. You have pus or a bad smell coming from your incision or puncture site. You have a fever. Your incision or puncture site opens up. Get help right away if: You develop a rash. You have difficulty breathing. Summary After your procedure it is common to have mild pain, swelling, redness, or discomfort in your scrotum. Avoid physical activity and exercise that requires a lot of energy for the first 2 days after surgery. Put ice on the injured area. Leave the ice on for 20 minutes, 2 3 times a day. Do not drive for 24 hours if you were given a sedative to help you relax. This information is not intended to replace advice given to you by your health care provider. Make sure you discuss any questions you have with your health care provider. Document Released: 08/20/2005 Document Revised: 01/13/2018 Document Reviewed: 04/29/2017 [employer] Patient Education 2019 [employer]. Follow Up Care 11/04/2021 11:38:21 With:JP MCQUEEN, Domenic Hernandez, URL Address: [facility] [address], [place] [address]- [phone] When: Unknown Comments:schedule vas [facility] [place] 03-18-2022 Evaluation note* Encounter Date Diagnosis Assessment Notes Treatment Notes Treatment Clinical Notes Apr, Cough (ICD-10 - R05.9) Apr,Left otitis media, unspecified otitis media type (ICD-10 - H66.92) Drink plenty fluids, get plenty of rest. Take the Zithromax and prednisone as prescribed until gone. Take Tylenol or Motrin for aches pains or fevers. Follow- up with your family physician if no improvement in 2 to 3 days. Apr,Influenza A (ICD-10 - J10.1) [employer] Other 01-31-2022 Evaluation note* Encounter Date Diagnosis Assessment Notes Treatment Notes Treatment Clinical Notes Feb, Contact with and (lovell spected) exposure to other viral communicable diseases (ICD-10 - Z20.828) Today test was performed in office. Results are currently negative. That does not mean that you will not develop COVID or do not currently have a low viral count of COVID. The rapid test works best if symptoms have been over 72 hours and the results can vary if you are asymptomatic There is a higher chance of false negative results to occur if testing is performed too soon. It is recommended thateven if results are negative and you have been exposed to someone that has COVID that you follow current CDC recommendations. These can be found at CDC.GOV. Follow up with primary care provider if symptoms persist or do not improve *VIRAL URI HANOUT GIVEN ON OTC TREATMENTS, FOLLOW UP AND WHEN TO SEEK EMERGENCY TREATMENT Feb,ecurrent acute serous otitis media of both ears (ICD-10 - H65.06) Ear infections are often a secondary infection caused from an URI, the flu or allergies. Take medication as directed. Complete all doses, even if you feel better. Tylenol or ibuprofen can help with pain. Warm pack to area for comfort helps as well. Follow up with primary care provider if no improvement of symptoms. Feb,ther Additional time spent conducting pre-visit phone call, screening for symptoms, instructions on social distancing, application and removal of PPE, and cleaning of examination room, equipment and supplies was preformed. Patient education given for testing methodology and results. Patient care instructions given in writting by [employer] [facility] document. [employer] Other [id number] Evaluation note* Encounter Date Diagnosis Assessment Notes Treatment Notes Treatment Clinical Notes Feb, Contact with and (lovell spected) exposure to other viral communicable diseases (ICD-10 - Z20.828) Feb,trep pharyngitis (ICD-10 - J02.0) Symptoms presented in office today indicate Strep Throat. Take medications as directed. Saltwater gargles may help with pain and disrupts bacteria and viral infections. Continue tylenol/ibu for general discomfort. Encourage fluids. Symptoms should improve within the next 4-7 days. Feb,ore throat (ICD-10 - J02.9) Feb,ther Additional time spent conducting pre-visit phone call, screening for symptoms, instructions on social distancing, application and removal of PPE, and cleaning of examination room, equipment and supplies was preformed. Patient education given for testing methodology and results. Patient care instructions given in writting by [employer] [facility] document. [employer] Other Evaluation + Plan note No data available for this section [facility] evaluation noteNo assessment information available [facility] Work Phone: Evaluation note* Diagnosis Class 3 severe obesity due to excess calories without serious comorbidity with body mass index (BMI) of 45.0 to 49.9 in adult ([facility])- Primary Dandruff in adult Seborrheic dermatitis Unspecified seborrheic dermatitis documented [facility] this encounter [facility] Diagnosis Wellness examination- Primary Current mild episode of major depressive disorder without prior episode ([facility]) Anxiety Anxiety state, unspecified Class 3 severe obesity due to excess calories without serious comorbidity with body mass index (BMI) of 45.0 to 49.9 in adult ([facility]) Acute bilateral low back pain with left-sided sciatica Mild intermittent reactive airway disease without complication documented in this encounter [facility]* Diagnosis Class 3 severe obesity due to excess calories without serious comorbidity with body mass index (BMI) of 45.0 to 49.9 in adult ([facility])- Primary Acute left-sided low back pain with left-sided sciatica Acute allergic rhinitis [facility] Diagnosis Morbid obesity ([facility])- Primary Morbid obesity Class 3 severe obesity due to excess calories without serious comorbidity with body mass index (BMI) of 40.0 to 44.9 in adult ([facility]) Thoracic myofascial strain, subsequent encounter documented [facility] Diagnosis Class 3 severe obesity due to excess calories without serious comorbidity with body mass index (BMI) of 40.0 to 44.9 in adult ([facility]) documented [facility] Diagnosis Class 3 severe obesity due to excess calories without serious comorbidity with body mass index (BMI) of 40.0 to 44.9 in adult ([facility]) documented [facility]* Diagnosis Lumbar radiculopathy, chronic- Primary Morbid obesity ([facility]) Morbid obesity documented [facility]* Diagnosis Mild intermittent reactive airway disease without complication documented [facility] this [facility]* Diagnosis Class 3 severe obesity due to excess calories without serious comorbidity with body mass index (BMI) of 45.0 to 49.9 in adult ([facility])- Primary documented [facility]* Diagnosis Class 3 severe obesity due to excess calories without serious comorbidity with body mass index (BMI) of 45.0 to 49.9 in adult ([facility])- Primary documented [facility]* Diagnosis Class 3 severe obesity due to excess calories without serious comorbidity with body mass index (BMI) of 45.0 to 49.9 in adult ([facility]) [facility] Narrative - Reported* Type Description Date Medical History Gastroesophageal ref lux disease, esophagitis presence not specified Surgical Historywisdom teethHospitalization HistorySee Above [employer] Other Instructions* Attachments The following attachments cannot be sent through Care Everywhere. * Seborrheic dermatitis ([place]) documented in [facility] encounter[facility] SystemInstructions* Attachments The following attachments cannot be sent through Care Everywhere. * Back Exercises ([place]) [facility] in [facility]Pro[facility] SystemInst[facility]* Attachments The following attachments cannot be sent through Care Everywhere. * Sciatica ([place]) * Low back pain in adults ([place]) * Making Healthy Choices When You Grocery Shop ([place]) * Making Healthy Choices When You Eat Out ([place]) documented in this encounterProMediMarakana Health SystemInstructionsNot on file documented in this encounterProMediMarakana Health SystemInstructionsNot on file documented in this encounterProMediMarakana Health SystemInstructionsNot on file documented in this encounterProMediMarakana Health SystemInstructionsNot on file documented in this encounterProMediMarakana Health SystemInstructionsNot on file documented in this encounterProMediMarakana Health SystemInstructionsNot on file documented in this encounterProMediMarakana Health SystemInstructionsNot on file documented in this encounterProGROUNDBOOTH Health SystemInstructionsNot on file documented in this encounterProMediMarakana Health SystemInstructionsNot on file documented in this encounterProMediMarakana Health SystemInstructionsNot on file documented in this encounterProGROUNDBOOTH Health SystemProgress note No data available for this section [facility] reason for referral (narrative)* Consultation (Routine) - AuthorizedSpecialtyDiagnoses / ProceduresReferred By ContactReferred To ContactRehabilitation Diagnoses Acute left-sided low back pain with left-sided sciatica Guzman Bernal, APPEALS NURSE-LINER ASSEMBLER [address] [place] [address] [facility] [address] [place] [address] Referral IDStatusReasonStart DateExpiration DateVisits RequestedVisits [id number] Specialty Services Required / [facility] Summary Purpose Family History No Family History Records FoundNo Family History Records FoundNo Family History Records FoundNo Family History Records FoundNo Family History Records FoundNo Family History Records FoundNo Family History Records FoundNo Family History Records Found Advance Directives No Advanced Directives Records FoundNo Advanced Directives Records FoundNo Advanced Directives Records FoundNo Advanced Directives Records FoundNo Advanced Directives Records FoundNo Advanced Directives Records FoundNo Advanced Directives Records FoundNo Advanced Directives Records Found Reason for Referral SpecialtyDiagnoses / ProceduresReferred By ContactReferred To Contact Diagnoses Lumbar radiculopathy, chronic Procedures MR lumbar spine without contrast MR lumbar spine without contrast Furlong, Alexey G, DO [address] [facility], [place] [address] Referral IDStatusReasonStart DateExpiration DateVisits RequestedVisits [id number] Review/[id number] / ProceduresReferred By ContactReferred To ContactPain Medicine Diagnoses Lumbar radiculopathy, chronic Furlong, Alexey G, DO [address] [facility], [place] [address] Levi Clayton MD [address] [place] [address] Referral IDStatusReasonStart DateExpiration DateVisits RequestedVisits [id number]/ Scheduling Instructions Dr. Williamson Additional Source Comments (unrecognized sect ion and content) No Status Records FoundNo Status Records FoundNo Status Records FoundNo Status Records FoundNo Status Records FoundNo Status Records FoundNo Status Records FoundNo Status Records Found INFORMATION SOURCE (unrecogn ized section and content) DATE CREATED AUTHOR 08/08/2017 [facility] DATE CREATED AUTHOR AUTHOR'S ORGANIZ ATION 11/15/2021 [facility] DATE CREATED AUTHOR AUTHOR'S ORGANIZ ATION 11/07/2022 [facility] DATE CREATED AUTHOR AUTHOR'S ORGANIZ ATION 11/15/2022 [facility] DATE CREATED AUTHOR AUTHOR'S ORGANIZ ATION 11/26/2022 [facility] DATE CREATED AUTHOR AUTHOR'S ORGANIZ ATION 06/17/2023 [facility] DATE CREATED AUTHOR AUTHOR'S ORGANIZ ATION 03/31/2024 [facility] DATE CREATED AUTHOR AUTHOR'S ORGANIZ ATION 04/22/2024 [facility] REASON FOR VISIT (unrecogniz ed section and content) ReasonCommentsBack [id number].Annual ExamReasonCommentsWeight CheckReasonOnset DateCommentsMed [id number] CheckOMTReasonOnset Date CommentsMed [id number] DateCommentsMed [id number] CommentsFollow-up1 month follow up.feeling a little bit worse,InsomniaReason Onset DateCommentsMed [id number] - IndividualSpecialty Diagnoses / ProceduresReferred By ContactReferred To ContactEndocrinology, Diabetes & Metabolism Diagnoses Class 3 severe obesity due to excess calories without serious comorbidity with body mass index (BMI) of 45.0 to 49.9 in adult ([facility]) Alexey Shah G, DO [address] [facility], [place] [address] Phone: tel: fax: [facility] [address] [place] [address] Phone: tel: fax: Referral IDStatusReasonStart DateExpiration DateVisits RequestedVisits [id number] Specialty Services Required Patient Care team informatio n (unrecognized section and content) Team Status: Inactive Member Role Status Dates Domenic Trammell MD Attending Provider Active Team MemberRelationshipSpecialtyStart DateEnd Date Guzman Bernal APPEALS NURSE-LINER ASSEMBLER [address] [place] [address] [facility] Hgmlxbcr39/16/23Te MemberRelationshipSpecialtyStart Date End Date Guzman Bernal APPEALS NURSE-LINER ASSEMBLER [address] [place] [address] PCP - [facility]12/30/22Te MemberRelationshipSpecialtyStart Date End Date Guzman Bernal APPEALS NURSE-[employer]ER ASSEMBLER [address] [place] [address] PCP - [facility]12/30/22Te MemberRelationshipSpecialtyStart Date End Date Guzman Bernal APPEALS NURSE-LINER ASSEMBLER [address] [place] [address] PCP - [facility]12/30/22Te MemberRelationshipSpecialtyStart Date End Date Guzman Bernal APPEALS NURSE-[employer]ER ASSEMBLER [address] [place] [address] [facility] Gqbsvpfd87/16/23Te MemberRelationshipSpecialtyStart Date End Date Guzman Bernal APPEALS NURSE-LINER ASSEMBLER [address] [place] [address] [facility] Wqlgytlj51/16/23Te MemberRelationshipSpecialtyStart Date End Date Guzman Bernal APPEALS NURSE-LINER ASSEMBLER [address] [place] [address] PCP - GeneralInternal Zumenshs87/16/23Team MemberRelationshipSpecialtyStart Date End Date DoloresGuzman APPEALS NURSE-LINER ASSEMBLER [address] [place] [address] PCP - GeneralInternal Vfdfkyjy93/16/23Team MemberRelationshipSpecialtyStart Date End Date Guzman Bernal APPEALS NURSE-[facility] [address] [place] [address] [facility] Vmxexver30/16/23Team MemberRelationshipSpecialtyStart Date End Date Guzman Bernal APPEALS NURSE-[facility] [address] [place] [address] [facility] - [facility] Peorianal Uzwgvqdq10/16/23Team MemberRelationshipSpecialtyStart Date End Date Guzman Bernal APPEALS NURSE-[facility] [address] [place] [address] PCP - GeneralInternal Jhyelkmd99/16/23Team MemberRelationshipSpecialtyStart Date End Date Guzman Bernal APPEALS NURSE-[employer] ASSEMBLER [address] [place] [address] PCP - GeneralInternal Aponaoli10/16/23Team MemberRelationshipSpecialtyStart Date End Date Guzman Bernal APPEALS NURSE-LINER ASSEMBLER [address] [place] [address] PCP - GeneralInternal Diicjkcx07/16/23 Goals (unrecognized section and content) Goals may be documented in a n alternate section FOR RECORDS PERTAINING TO PATIENTS WHO ARE OR HAVE BEEN ENROLLED IN A CHEMICAL DEPENDENCY/SUBSTANCEABUSE PROGRAM, SOME INFORMATION MAY BE OMITTED. This clinical summary was aggregated from multiple sources. Caution should be exercised in using it in the provision of clinical care. This summary normalizes information from multiple sources, and as a consequence, information in this document may materially change the coding, format and clinical context of patient data. In addition, data may be omitted in some cases. CLINICAL DECISIONS SHOULD BE BASED ON THE PRIMARY CLINICAL RECORDS. [facility]. provides no warranty or guarantee of the accuracy or completeness of information in this document.
--- OUTSIDE RECORDS SUMMARY | 2024-12-05 15:59 | XMS_ITS | Clinical Summary ---
Author Organization [facility] Address [address] [place] [address] Care Team Providers Care Field Tech Name Role Phone Unavailable Primary Care Provider Unavailabl e Social History Tobacco UseTypesPacks/DayYears UsedDateSmoking Tobacco: Never AssessedSex and Gender InformationValueDate RecordedSex Assigned at BirthNot on fileLegal Sex Male04/28/2022 6:37 PM EDTGender IdentityNot on fileSexual OrientationNot on file Plan of Treatment Not on file
== END 2024-12-05 15:53 | disposition home or self-care (01) ==
LOC: RAD 15:54
PROVIDERS: PCP Nurse Practitioner Family; Visit Provider Nurse Practitioner Family
DX: M25.552 Pain in left hip (principal)
CPT/HCPCS: 73502